=== PATIENT | female | born 1930 | race Caucasian/White ===

== ENCOUNTER → 2016-12-11 | Emergency (ER) | payer MEDICARE, MEDICAID ==
[~2016-12-11] MED LIST: CIPROFLOXACIN HCL/DEXAMETH OTIC DROP 7.5 ML AU ONE
[2016-12-11 16:12] VITALS: BP 100/49
--- NOTE | 2016-12-11 16:55 | ER Document Report ---
ED ENT - General Mode of Arrival: Ambulatory Information source: Patient TRAVEL OUTSIDE OF THE [place]. IN LAST 30 DAYS: No - HPI Patient complains to provider of: Ear problem Onset: Other - unknown Quality of pain: Achy Associated symptoms: None <PATT BYRNES - Last Filed: 12/11/16 18:49> <LORENZO KELLER - Last Filed: 12/11/16 21:47> - General Stated Complaint: WEAKNESS Notes: Patient is an 86-year-old female that presents to the emergency department today from [facility] for complaints of ear pain. Patient is pleasantly demented at baseline. Patient states she believes it is 1940. Patient is able to accurately state that we re in December. Patient denies any fevers. (PATT BYRNES) - Related Data Allergies/Adverse Reactions: clonazepam [From Klonopin] Allergy (Verified 05/27/16 00:52) codeine [Codeine] Allergy (Verified 05/27/16 00:52) erythromycin base [Erythromycin Base] Allergy (Verified 05/27/16 00:52) hydrocodone [Hydrocodone] Allergy (Verified 05/27/16 00:52) Delirium hydrocodone bitartrate [From Vicodin] Allergy (Verified 05/27/16 00:52) Delirium Sulfa (Sulfonamide Antibiotics) Allergy (Verified 05/27/16 00:52) Skin Redness morphine [Morphine] Adverse Reaction (Intermediate, Verified 05/27/16 00:52) confusion, agitation oxycodone HCl [From Percocet] Adverse Reaction (Verified 05/27/16 00:52) Confusion strawberry [[place]] Adverse Reaction (Verified 05/27/16 00:52) Tetanus Vaccines and Toxoid [Tetanus] Adverse Reaction (Verified 05/27/16 00:52) Past Medical History - General Information source: Patient, [facility] Records Cannot obtain history due to: Dementia - Social History Smoking Status: Never Smoker Cigarette use (# per day): No Frequency of alcohol use: None Drug Abuse: None Lives with: Family Family History: Reviewed & Not Pertinent - Past Medical History Cardiac Medical History: Reports: Hx Hypercholesterolemia, Hx Hypertension Pulmonary Medical History: Reports: Hx Tuberculosis Endocrine Medical History: Reports: Hx Hypothyroidism Renal/ Medical History: Reports: Hx Ectopic Musculoskeltal Medical History: Reports Hx Arthritis, Reports Hx Musculoskeletal Trauma Skin Medical History: Reports Hx Eczema Psychiatric Medical History: Reports: Hx Dementia Traumatic Medical History: Reports: Hx Fractures - right hip Past Surgical History: Reports: Hx Orthopedic Surgery - right hip ORIF - Immunizations Immunizations up to date: Yes Hx Diphtheria, Pertussis, Tetanus Vaccination: Yes <PATT BYRNES - Last Filed: 12/11/16 18:49> Review of Systems - Review of Systems Constitutional: denies: Fever EENT: See HPI, Ear pain Cardiovascular: No symptoms reported Respiratory: No symptoms reported Gastrointestinal: No symptoms reported Genitourinary: No symptoms reported Female Genitourinary: No symptoms reported Musculoskeletal: No symptoms reported Skin: No symptoms reported Hematologic/Lymphatic: No symptoms reported Neurological/Psychological: No symptoms reported -: Yes All other systems reviewed and negative <PATT BYRNES - Last Filed: 12/11/16 18:49> Physical Exam <PATT BYRNES - Last Filed: 12/11/16 18:49> <LORENZO KELLER - Last Filed: 12/11/16 21:47> - Vital signs Vitals: Temp Pulse Resp BP Pulse Ox 98.8 F 60 16 100/49 L 99 12/11/16 16:11 12/11/16 16:11 12/11/16 16:11 12/11/16 16:11 12/11/16 16:11 - Notes Notes: Physical Exam: General: Alert, appears well. HEENT: Normocephalic. Atraumatic. PERRL. Extraocular movements intact. Oropharynx clear. Cerumen impaction bilaterally. External canal erythema on the right. Neck: Supple. Non-tender. Respiratory: No respiratory distress. Clear and equal breath sounds bilaterally. Cardiovascular: Regular rate and rhythm. Abdominal: Normal Inspection. Non-tender. No distension. Normal Bowel Sounds. Back: Non-tender. No deformity or step off. Extremities: Moves all four extremities. Upper extremities: Normal inspection. Normal color. Normal ROM. Lower extremities: Normal inspection. No edema. Normal ROM. Neurological: Alert to month, does not remember the year, believes it is 1940. Psychological: Demented at baseline Skin: Warm. Dry. Normal color. (PATT BYRNES) Course <PATT BYRNES - Last Filed: 12/11/16 18:49> <LORENZO KELLER - Last Filed: 12/11/16 21:47> - Re-evaluation Re-evalutation: 12/11/16 17:52 Patient is an 86-year-old female who comes in with bilateral cerumen impaction. The ears were irrigated with good results. Patient also appears to have otitis externa on the right. Ciprodex started. Patient is stable for discharge. No complaints. Stable vitals. (LORENZO KELLER) - Vital Signs Vital signs: Temp Pulse Resp BP Pulse Ox 98.8 F 60 16 100/49 L 99 12/11/16 16:11 12/11/16 16:11 12/11/16 16:11 12/11/16 16:11 12/11/16 16:11 Procedures - Additional Procedures cerumen removal Additional Procedures: Other - Irrigated bilateral ears with saline and peroxide with good results. Can now visualize tympanic membrane bilaterally <LORENZO KELLER - Last Filed: 12/11/16 21:47> Discharge <PATT BYRNES - Last Filed: 12/11/16 18:49> <LORENZO KELLER - Last Filed: 12/11/16 21:47> - Discharge Clinical Impression: Impacted cerumen of both ears Otitis externa of right ear Qualifiers: Otitis externa type: unspecified type Chronicity: acute Qualified Code(s): H60.501 - Unspecified acute noninfective otitis externa, right ear Condition: Stable Disposition: HOME, SELF-CARE Instructions: Otitis Externa ([facility]), Cerumen Impaction ([facility]) Prescriptions: Ciprofloxacin HCl/Dexameth [Ciprodex Otic Suspension 7.5 ml Bottle] 4 drop OT BID #1 bottle Referrals: OLEG KAUFFMAN MD [Primary Care Provider] - Follow up as needed Scribe Attestation: 12/11/16 21:47 I personally performed the services described in the documentation, reviewed and edited the documentation which was dictated to the scribe in my presence, and it accurately records my words and actions. (LORENZO KELLER) Scribe Documentation - Scribe Written by Mannyibe:: Madeleine Whalen, 12/11/2016 1720 acting as scribe for :: Keith <PATT BYRNES - Last Filed: 12/11/16 18:49>
== END | disposition home or self-care (01) ==
LOC: ER 15:57
DX: H61.23 Impacted cerumen, bilateral (principal); H60.501 Unspecified acute noninfective otitis externa, right ear; R53.1 Weakness; H92.09 Otalgia, unspecified ear
CPT/HCPCS: 99283; 71020; J3490

== ENCOUNTER 2017-01-01 04:19 | Emergency (ER) | payer MEDICARE, MEDICAID ==
--- NOTE | 2017-01-01 05:18 | ER Document Report ---
ED Fall - General Chief Complaint: Fall Stated Complaint: FALL/WELL CHECK Mode of Arrival: Medic Information source: Outside Facility Records Notes: Pt is an 86-year-old female with dementia who resides at a long term who presents to the ER today for chief complaint of a fall to her left side. Patient did complain of some left knee pain, headache and left hip pain. Patient at this time does not even remember the fall and is complaining of just a mild headache and no pain anywhere else. She is not oriented to time. TRAVEL OUTSIDE OF THE [place]. IN LAST 30 DAYS: No - Related data Allergies/Adverse Reactions: clonazepam [From Klonopin] Allergy (Verified 05/27/16 00:52) codeine [Codeine] Allergy (Verified 05/27/16 00:52) erythromycin base [Erythromycin Base] Allergy (Verified 05/27/16 00:52) hydrocodone [Hydrocodone] Allergy (Verified 05/27/16 00:52) Delirium hydrocodone bitartrate [From Vicodin] Allergy (Verified 05/27/16 00:52) Delirium Sulfa (Sulfonamide Antibiotics) Allergy (Verified 05/27/16 00:52) Skin Redness morphine [Morphine] Adverse Reaction (Intermediate, Verified 05/27/16 00:52) confusion, agitation oxycodone HCl [From Percocet] Adverse Reaction (Verified 05/27/16 00:52) Confusion strawberry [[place]] Adverse Reaction (Verified 05/27/16 00:52) Tetanus Vaccines and Toxoid [Tetanus] Adverse Reaction (Verified 05/27/16 00:52) Past Medical History - General Information source: Patient, Outside Facility Records - Social History Smoking Status: Unknown if Ever Smoked Family History: Reviewed & Not Pertinent - Past Medical History Cardiac Medical History: Reports: Hx Hypercholesterolemia, Hx Hypertension Pulmonary Medical History: Reports: Hx Tuberculosis Endocrine Medical History: Reports: Hx Hypothyroidism Renal/ Medical History: Reports: Hx Ectopic Musculoskeltal Medical History: Reports Hx Arthritis, Reports Hx Musculoskeletal Trauma Skin Medical History: Reports Hx Eczema Psychiatric Medical History: Reports: Hx Dementia Traumatic Medical History: Reports: Hx Fractures - right hip Past Surgical History: Reports: Hx Orthopedic Surgery - right hip ORIF - Immunizations Immunizations up to date: Yes Hx Diphtheria, Pertussis, Tetanus Vaccination: Yes Review of Systems - Review of Systems Constitutional: No symptoms reported EENT: No symptoms reported Cardiovascular: No symptoms reported Respiratory: No symptoms reported Gastrointestinal: No symptoms reported Genitourinary: No symptoms reported Female Genitourinary: No symptoms reported Musculoskeletal: No symptoms reported Skin: No symptoms reported Hematologic/Lymphatic: No symptoms reported Neurological/Psychological: See HPI Physical Exam - Vital signs Vitals: Temp Pulse Resp BP Pulse Ox 97.6 F 61 14 135/68 H 99 01/01/17 04:30 01/01/17 04:30 01/01/17 04:30 01/01/17 04:30 01/01/17 04:30 - Notes Notes: PHYSICAL EXAMINATION: GENERAL: Well-appearing, demented and in no acute distress. HEAD: Atraumatic, normocephalic. NECK: Normal range of motion, supple without lymphadenopathy LUNGS: CTAB and equal. No wheezes rales or rhonchi. HEART: Regular rate and rhythm without murmurs ABDOMEN: Soft, no tenderness. No guarding, no rebound BACK: no vertebral tenderness, normal ROM EXTREMITIES: no tenderness to knees or hips, no deformity, Normal range of motion, no pitting edema. No cyanosis. NEUROLOGICAL: Cranial nerves grossly intact. Normal sensory/motor exams. PSYCH: demented, oriented to person but not place or time SKIN: Warm, Dry, normal turgor, no rashes or lesions noted Course - Re-evaluation Re-evalutation: 01/01/17 06:46 left hip, left knee and head CT negative for any acute pathology. Pt has no complaints and can be safely discharged back to long term. - Vital Signs Vital signs: Temp Pulse Resp BP Pulse Ox 97.6 F 58 L 18 123/60 96 01/01/17 04:30 01/01/17 05:17 01/01/17 06:24 01/01/17 06:24 01/01/17 06:24 Discharge - Discharge Clinical Impression: Fall at long term Qualifiers: Encounter type: initial encounter Qualified Code(s): W19.XXXA - Unspecified fall, initial encounter Condition: Stable Disposition: HOME-SNF (ED ONLY)
[2017-01-01 09:06] VITALS: BP 108/64
== END 2017-01-01 09:07 ==
LOC: ER 04:19
DX: R51 Headache (principal); M25.562 Pain in left knee; M25.552 Pain in left hip; W19.XXXA Unspecified fall, initial encounter; F03.90 Unspecified dementia, unspecified severity, without behavioral disturbance, psychotic disturbance, mood disturbance, and anxiety; Y92.129 Unspecified place in nursing home as the place of occurrence of the external cause; I10 Essential (primary) hypertension; Z88.8 Allergy status to other drugs, medicaments and biological substances; Z88.5 Allergy status to narcotic agent; Z88.1 Allergy status to other antibiotic agents; Z88.2 Allergy status to sulfonamides
CPT/HCPCS: 70450; 99285

== ENCOUNTER 2017-12-16 14:30 | Emergency (ER) | payer MEDICARE, MEDICAID ==
--- NOTE | 2017-12-16 14:58 | RADIOLOGY REPORT (SQ) ---
EXAM DESCRIPTION: HIP RIGHT AP/LATERAL COMPLETED DATE/TIME: 12/16/2017 2:44 pm REASON FOR STUDY: bed 1 right hip s/p fall with tenderness COMPARISON: 01/01/2017. NUMBER OF VIEWS: Two views. TECHNIQUE: AP pelvis and additional frog-leg view of the right hip. LIMITATIONS: None. FINDINGS: MINERALIZATION: Normal. RIGHT HIP: No fracture or dislocation. Stable hardware. No worrisome bone lesions. LEFT HIP: No fracture or dislocation. No worrisome bone lesions. PUBIS AND ISCHIUM: Acute fractures of the right superior and inferior pubic ramus. PELVIS: No fracture. SACRUM: No fracture or dislocation. No worrisome bone lesions. LOWER LUMBAR SPINE: No fracture or dislocation. No worrisome bone lesions. Degenerative disc disease . SOFT TISSUES: No findings. OTHER: No other significant finding. IMPRESSION: ACUTE FRACTURES OF THE RIGHT SUPERIOR AND INFERIOR PUBIC RAMUS. STABLE HARDWARE IN THE RIGHT HIP. TECHNICAL DOCUMENTATION: JOB ID: [id number] [employer]- All Rights Reserved Reading location - IP/workstation name: [email or web address]
[2017-12-16] MEDS ORDERED: ACETAMINOPHEN 325 MG TABLET PO ONE (15:13)
--- NOTE | 2017-12-16 15:45 | ER Document Report ---
ED Hip Pain/Injury - General Chief Complaint: Hip Injury Stated Complaint: FALL Time Seen by Provider: 12/16/17 15:02 Mode of Arrival: Stretcher Information source: Emergency Med Personnel, Outside Facility Records TRAVEL OUTSIDE OF THE [place]. IN LAST 30 DAYS: No - HPI Patient complains to provider of: Injury, Pain Occurred: Just prior to arrival Where: Long-Term Onset/Duration: Sudden Quality of pain: Achy Severity: Mild Pain Level: 1 Context: Fell/lost balance Symptoms prior to fall: None Symptoms since fall: None Skin Color: Normal Notes: Patient is a 89-year-old female [facility] local [facility] for complaints of [facility] from commode, patient has a history of a hip fracture with repair in 2013, she has no complaints at time of my evaluation, in fact denies that she fell, although she has a dementia and is unlikely not oriented to events of the day, she does have some tenderness when I palpate over the right hip/suprapubic area , and some pain with range of motion testing of the right hip - Related Data Allergies/Adverse Reactions: clonazepam [From Klonopin] Allergy (Verified 05/27/16 00:52) codeine [Codeine] Allergy (Verified 05/27/16 00:52) erythromycin base [Erythromycin Base] Allergy (Verified 05/27/16 00:52) hydrocodone [Hydrocodone] Allergy (Verified 05/27/16 00:52) Delirium hydrocodone bitartrate [From Vicodin] Allergy (Verified 05/27/16 00:52) Delirium Sulfa (Sulfonamide Antibiotics) Allergy (Verified 05/27/16 00:52) Skin Redness morphine [Morphine] Adverse Reaction (Intermediate, Verified 05/27/16 00:52) confusion, agitation oxycodone HCl [From Percocet] Adverse Reaction (Verified 05/27/16 00:52) Confusion strawberry [[place]] Adverse Reaction (Verified 05/27/16 00:52) Tetanus Vaccines and Toxoid [Tetanus] Adverse Reaction (Verified 05/27/16 00:52) Past Medical History - General Information source: Patient - Social History Smoking Status: Unknown if Ever Smoked Family History: Reviewed & Not Pertinent Patient has suicidal ideation: No Patient has homicidal ideation: No - Past Medical History Cardiac Medical History: Reports: Hx Hypercholesterolemia, Hx Hypertension Pulmonary Medical History: Reports: Hx Tuberculosis Endocrine Medical History: Reports: Hx Hypothyroidism Renal/ Medical History: Reports: Hx Ectopic . Denies: Hx Peritoneal Dialysis Musculoskeltal Medical History: Reports Hx Arthritis, Reports Hx Musculoskeletal Trauma Skin Medical History: Reports Hx Eczema Psychiatric Medical History: Reports: Hx Dementia Traumatic Medical History: Reports: Hx Fractures - right hip Past Surgical History: Reports: Hx Orthopedic Surgery - right hip ORIF - Immunizations Immunizations up to date: Yes Hx Diphtheria, Pertussis, Tetanus Vaccination: Yes Review of Systems - Review of Systems Constitutional: No symptoms reported EENT: No symptoms reported Cardiovascular: No symptoms reported Respiratory: No symptoms reported Gastrointestinal: No symptoms reported Genitourinary: No symptoms reported Female Genitourinary: No symptoms reported Musculoskeletal: See HPI Skin: No symptoms reported Hematologic/Lymphatic: No symptoms reported Neurological/Psychological: No symptoms reported -: Yes All other systems reviewed and negative Physical Exam - Vital signs Interpretation: Normal - General General appearance: Alert In distress: None - HEENT Head: Normocephalic, Atraumatic Eyes: Normal Conjunctiva: Normal Extraocular movements intact: Yes Eyelashes: Normal Pupils: PERRL - Respiratory Respiratory status: No respiratory distress Chest status: Nontender Breath sounds: Normal Chest palpation: Normal - Cardiovascular Rhythm: Regular Heart sounds: Normal auscultation Murmur: No - Abdominal Inspection: Normal Distension: No distension Bowel sounds: Normal Tenderness: Nontender Organomegaly: No organomegaly - Back Back: Normal, Nontender - Extremities General upper extremity: Normal inspection, Nontender, Normal color, Normal ROM , Normal temperature General lower extremity: Normal color, Normal ROM, Normal temperature. No: Carmen's sign Hip: Tender - Tenderness to palpate in the right hip/suprapubic region, patient reports pain with range of motion testing, distal sensation and motor is intact with 2+ pulses, no deformity - Neurological Neuro grossly intact: Yes Cognition: Confused Orientation: Disoriented to place, Disoriented to time, Disoriented to events [place] Coma Scale Eye Opening: Spontaneous Willis Coma Scale Verbal: Confused Remington Coma Scale Motor: Obeys Commands Willis Coma Scale Total: 14 Speech: Normal Motor strength normal: LUE, RUE, LLE Sensory: Normal - Psychological Associated symptoms: Normal affect, Normal mood - Skin Skin Temperature: Warm Skin Moisture: Dry Skin Color: Normal Skin irregularity: Erythema - Diffuse erythema Location of irregularity: Face Course - Re-evaluation Re-evalutation: 12/16/17 15:54 Patient discussed with on-call orthopedist, Dr. Shaw who reviewed patient's x -rays and reports no intervention required at this time, patient can safely be [facility] to [facility] with instructions to weight-bear as tolerated - Diagnostic Test Radiology reviewed: Image reviewed, Reports reviewed Discharge - Discharge Clinical Impression: Pubic ramus fracture Qualifiers: Encounter type: initial encounter Fracture type: closed Laterality: right Qualified Code(s): S32.591A - Other specified fracture of right pubis, initial encounter for closed fracture Condition: Stable Disposition: HOME, SELF-CARE Instructions: Pelvic Fracture ([facility]) Additional Instructions: Follow up with your primary care provider and an orthopedic surgeon in one to 2 days. Return to the emergency room immediately if symptoms worsen or any additional concerns. Ice and elevate the affected extremity. Weightbearing as tolerated. Prescriptions: Ibuprofen [Motrin 600 Mg Tablet] 600 mg PO TID #30 tablet
[2017-12-16 17:41] VITALS: BP 118/30
== END 2017-12-16 17:40 | disposition home or self-care (01) ==
LOC: ER 14:30
DX: S32.591A Other specified fracture of right pubis, initial encounter for closed fracture (principal); W18.11XA Fall from or off toilet without subsequent striking against object, initial encounter; Y92.129 Unspecified place in nursing home as the place of occurrence of the external cause; F03.90 Unspecified dementia, unspecified severity, without behavioral disturbance, psychotic disturbance, mood disturbance, and anxiety; I10 Essential (primary) hypertension; E78.00 Pure hypercholesterolemia, unspecified; Z88.2 Allergy status to sulfonamides; Z88.7 Allergy status to serum and vaccine; Z88.3 Allergy status to other anti-infective agents; Z88.6 Allergy status to analgesic agent
CPT/HCPCS: 99283; 73502; A9270

== ENCOUNTER 2018-01-25 13:26 | Emergency (ER) | payer MEDICARE, MEDICAID ==
--- NOTE | 2018-01-25 14:04 | RADIOLOGY REPORT (SQ) ---
EXAM DESCRIPTION: HIP LEFT AP/LATERAL COMPLETED DATE/TIME: 01/25/2018 1:47 pm REASON FOR STUDY: fall COMPARISON: None. NUMBER OF VIEWS: 3 views. TECHNIQUE: AP pelvis and additional frog-leg view of the left hip. LIMITATIONS: None. FINDINGS: There is evidence of lumbar spondylosis. The SI joints is symmetrical. Since the previou s study there has been no significant healing at site of fractures of the right superior and inferior pubic ramus with further resorption along the fracture lines. Degenerative arthritis of the left hi p with osteophytic change left femoral head. Previous internal fixation right hip with right hip martin l traversing intramedullary eliecer. The eliecer is transfixed by a single screw. 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 IMPRESSION: Since the prior study of 12/16/2017, there has been further resorption at the site of fra ctures of the right superior and inferior pubic ramus. Status post internal fixation proximal right femur. Degenerative arthritis left hip. TECHNICAL DOCUMENTATION: JOB ID: [id number] [employer]- All Rights Reserved Reading location - IP/workstation name: [email or web address]
--- NOTE | 2018-01-25 14:11 | ER Document Report ---
ED General - General Chief Complaint: Fall Stated Complaint: HIP PAIN TRAVEL OUTSIDE OF THE [place] IN LAST 30 DAYS: No - HPI Patient complains to provider of: Possible fall Notes: Patient is a local nursing care facility when she was found lying next to her chair at the nursing care facility. Patient has a history of a pelvic fracture and does have pain on that side however patient was transferred for further evaluation. Upon my evaluation patient smiling denies any pain at this time patient does have a history of dementia of the median alert is not oriented no signs of significant trauma seen on the head - Related Data Allergies/Adverse Reactions: clonazepam [From Klonopin] Allergy (Verified 05/27/16 00:52) codeine [Codeine] Allergy (Verified 05/27/16 00:52) erythromycin base [Erythromycin Base] Allergy (Verified 05/27/16 00:52) hydrocodone [Hydrocodone] Allergy (Verified 05/27/16 00:52) Delirium hydrocodone bitartrate [From Vicodin] Allergy (Verified 05/27/16 00:52) Delirium Sulfa (Sulfonamide Antibiotics) Allergy (Verified 05/27/16 00:52) Skin Redness morphine [Morphine] Adverse Reaction (Intermediate, Verified 05/27/16 00:52) confusion, agitation oxycodone HCl [From Percocet] Adverse Reaction (Verified 05/27/16 00:52) Confusion strawberry [[place]] Adverse Reaction (Verified 05/27/16 00:52) Tetanus Vaccines and Toxoid [Tetanus] Adverse Reaction (Verified 05/27/16 00:52) Past Medical History - Social History Smoking Status: Unknown if Ever Smoked Family History: Reviewed & Not Pertinent Patient has suicidal ideation: No Patient has homicidal ideation: No - Past Medical History Cardiac Medical History: Reports: Hx Hypercholesterolemia, Hx Hypertension Pulmonary Medical History: Reports: Hx Tuberculosis Endocrine Medical History: Reports: Hx Hypothyroidism Renal/ Medical History: Reports: Hx Ectopic . Denies: Hx Peritoneal Dialysis Musculoskeltal Medical History: Reports Hx Arthritis, Reports Hx Musculoskeletal Trauma Skin Medical History: Reports Hx Eczema Psychiatric Medical History: Reports: Hx Dementia Traumatic Medical History: Reports: Hx Fractures - right hip Past Surgical History: Reports: Hx Orthopedic Surgery - right hip ORIF - Immunizations Immunizations up to date: Yes Hx Diphtheria, Pertussis, Tetanus Vaccination: Yes Review of Systems - Review of Systems Notes: Dementia -: Yes ROS unobtainable due to patient's medical condition Physical Exam - Vital signs Vitals: Temp Pulse Resp BP Pulse Ox 97.8 F 60 13 125/57 L 96 01/25/18 14:13 01/25/18 14:13 01/25/18 14:13 01/25/18 14:13 01/25/18 14:13 Interpretation: Normal - General General appearance: Appears well, Alert - HEENT Head: Normocephalic, Atraumatic Eyes: Normal Pupils: PERRL - Respiratory Respiratory status: No respiratory distress Chest status: Nontender Breath sounds: Normal Chest palpation: Normal - Cardiovascular Rhythm: Regular Heart sounds: Normal auscultation Murmur: No - Abdominal Inspection: Normal Distension: No distension Bowel sounds: Normal Tenderness: Nontender Organomegaly: No organomegaly - Back Back: Normal, Nontender - Extremities General upper extremity: Normal inspection, Nontender, Normal color, Normal ROM , Normal temperature General lower extremity: Normal inspection, Nontender, Normal color, Normal ROM , Normal temperature, Normal weight bearing. No: Carmen's sign - Neurological Neuro grossly intact: Yes Sensory: Normal - Skin Skin Temperature: Warm Skin Moisture: Dry Skin Color: Normal Course - Re-evaluation Re-evalutation: 01/25/18 15:26 Patient still has the right pubic rami fracture this was reviewed with orthopedics agrees with continued weightbearing as tolerated and follow-up in their office in 1-2 weeks. No signs of acute fracture patient discharged back to nursing care facility. - Vital Signs Vital signs: Temp Pulse Resp BP Pulse Ox 97.8 F 60 13 125/57 L 96 01/25/18 14:55 01/25/18 14:13 01/25/18 14:55 01/25/18 14:13 01/25/18 14:55 Discharge - Discharge Clinical Impression: Pubic ramus fracture Qualifiers: Encounter type: subsequent encounter Fracture type: closed Laterality: right Condition: Good Disposition: HOME, SELF-CARE Additional Instructions: Patient was seen and evaluated today for follow-up. Patient x-ray does not show any signs of fractures of the hip does show to her redemonstrate fractures of the pubic ramus. Would recommend the patient continues to follow-up with orthopedics in 1-2 weeks. Patient should remain weightbearing as tolerated otherwise please monitor the patient please create a safe environment to prevent falls.
[2018-01-25 14:14] VITALS: BP 125/57
== END 2018-01-25 14:59 | disposition home or self-care (01) ==
LOC: ER 13:26
DX: S32.591D Other specified fracture of right pubis, subsequent encounter for fracture with routine healing (principal); X58.XXXD Exposure to other specified factors, subsequent encounter; M25.551 Pain in right hip; Z98.890 Other specified postprocedural states; I10 Essential (primary) hypertension; Z88.8 Allergy status to other drugs, medicaments and biological substances; Z88.5 Allergy status to narcotic agent; Z88.1 Allergy status to other antibiotic agents; Z88.2 Allergy status to sulfonamides
CPT/HCPCS: 99284

== ENCOUNTER 2018-02-14 17:01 | Inpatient (IN) | payer MEDICARE, MEDICAID ==
[2018-02-14] MEDS ORDERED: NORMAL SALINE 500 ML IV ONE (17:35)
[2018-02-14 18:00] LABS: HEMATOCRIT 37.7 % (36.0-47.0); HEMOGLOBIN 12.8 g/dL (12.0-15.5); MEAN CORPUSCULAR HEMOGLOBIN 29.8 pg (27.0-33.4); MEAN CORPUSCULAR HGB CONC 33.9 g/dL (32.0-36.0); MEAN CORPUSCULAR VOLUME 88 fl (80-97); PLATELET COUNT 256 10^3/uL (150-450); RED BLOOD COUNT 4.28 10^6/uL (3.72-5.28); WHITE BLOOD COUNT 12.5 10^3/uL (4.0-10.5)
--- NOTE | 2018-02-14 18:05 | RADIOLOGY REPORT (SQ) ---
EXAM DESCRIPTION: CHEST SINGLE VIEW COMPLETED DATE/TIME: 02/14/2018 5:48 pm REASON FOR STUDY: cough COMPARISON: 12/11/2016 EXAM PARAMETERS: NUMBER OF VIEWS: One view. TECHNIQUE: Single frontal radiographic view of the chest acquired. RADIATION DOSE: NA LIMITATIONS: None. FINDINGS: LUNGS AND PLEURA: Mild subsegmental atelectasis in the left lung base. No consolidation, masses or pneumothorax. No pleural effusion. MEDIASTINUM AND HILAR STRUCTURES: Stable. HEART AND VASCULAR STRUCTURES: Stable. BONES: No acute findings. HARDWARE: Surgical clips in the left axilla-chest wall. OTHER: No other significant finding. IMPRESSION: Mild subsegmental atelectasis in the left lung base. TECHNICAL DOCUMENTATION: JOB ID: [id number] 2010 [employer]- All Rights Reserved Reading location - IP/workstation name: [employer]
[2018-02-14 18:09] LABS: ALANINE AMINOTRANSFERASE 23 U/L (9-52); ALBUMIN 3.8 g/dL (3.5-5.0); ALKALINE PHOSPHATASE 403 U/L (38-126); ANION GAP 17 (5-19); ASPARTATE AMINO TRANSFERASE 40 U/L (14-36); BILIRUBIN,DIRECT 0.8 mg/dL (0.0-0.4); BILIRUBIN,TOTAL 0.8 mg/dL (0.2-1.3); BLOOD UREA NITROGEN 90 mg/dL (7-20); CALCIUM 10.1 mg/dL (8.4-10.2); CARBON DIOXIDE 23 mmol/L (22-30); CHLORIDE 111 mmol/L (98-107); CREATINE KINASE 48 U/L (30-135); GLUCOSE 113 mg/dL (75-110); POTASSIUM 3.9 mmol/L (3.6-5.0); SODIUM 151.2 mmol/L (137-145); TOTAL PROTEIN 8.9 g/dL (6.3-8.2)
[2018-02-14 18:25] LABS: ABSOLUTE LYMPHOCYTES# (MANUAL) 3.5 10^3/uL (0.5-4.7); ABSOLUTE MONOCYTES # (MANUAL) 0.8 10^3/uL (0.1-1.4); BAND NEUTROPHILS % (MANUAL) 3 % (3-5); BASOPHILS % (MANUAL) 0 % (0-2); EOSINOPHILS % (MANUAL) 2 % (0-6); LYMPHOCYTES % (MANUAL) 28 % (13-45); METAMYELOCYTES % (MANUAL) 2 % (0); MONOCYTES % (MANUAL) 6 % (3-13); SEGMENTED NEUTROPHILS % (MAN) 59 % (42-78); TOTAL CELLS COUNTED 100
[2018-02-14 18:26] LABS: ANISOCYTOSIS 1+; PLATELET COMMENT ADEQUATE; TOXIC GRANULATION SLIGHT
[2018-02-14] MEDS ORDERED: DEXTROSE 5%-1/2 NORMAL SALINE 1,000 ML IV ONE (19:09)
[2018-02-14] MEDS ORDERED: RINGERS SOLUTION,LACTATED 1,000 ML IV ONE (19:10)
[2018-02-14 19:56] LABS: APPEARANCE,URINE CLOUDY; BILIRUBIN,URINE NEGATIVE (NEGATIVE); GLUCOSE, URINE NEGATIVE (NEGATIVE); KETONES,URINE NEGATIVE (NEGATIVE); LEUKOCYTE ESTERASE,URINE LARGE (NEGATIVE); NITRITE,URINE NEGATIVE (NEGATIVE); PROTEIN,URINE 100 mg/dL (NEGATIVE); URINE SPECIFIC GRAVITY 1.012
[2018-02-14 19:57] LABS: COLOR,URINE YELLOW
[2018-02-14] MEDS ORDERED: CEFTRIAXONE 1 GM/D5W RTU 1 GM/50 ML RTUPB IV ONE (20:04)
--- NOTE | 2018-02-14 20:09 | ER Document Report ---
ED General - General Chief Complaint: Altered Mental Status Stated Complaint: Lethargic Time Seen by Provider: 02/14/18 17:34 Notes: The patient is an 87-year-old female, past medical history dementia, seizures, hypertension, presents from [facility] with altered mental status and tiredness. When EMS arrived, steam pan sponger was unsure of her baseline mental status. Patient is awake, alert, but unable to provide any additional history. Patient denies any symptoms at this time. TRAVEL OUTSIDE OF THE [place] IN LAST 30 DAYS: No - Related Data Allergies/Adverse Reactions: clonazepam [From Klonopin] Allergy (Verified 05/27/16 00:52) codeine [Codeine] Allergy (Verified 05/27/16 00:52) erythromycin base [Erythromycin Base] Allergy (Verified 05/27/16 00:52) hydrocodone [Hydrocodone] Allergy (Verified 05/27/16 00:52) Delirium hydrocodone bitartrate [From Vicodin] Allergy (Verified 05/27/16 00:52) Delirium Sulfa (Sulfonamide Antibiotics) Allergy (Verified 05/27/16 00:52) Skin Redness morphine [Morphine] Adverse Reaction (Intermediate, Verified 05/27/16 00:52) confusion, agitation oxycodone HCl [From Percocet] Adverse Reaction (Verified 05/27/16 00:52) Confusion strawberry [[place]] Adverse Reaction (Verified 05/27/16 00:52) Tetanus Vaccines and Toxoid [Tetanus] Adverse Reaction (Verified 05/27/16 00:52) Past Medical History - Social History Smoking Status: Unknown if Ever Smoked Family History: Reviewed & Not Pertinent Patient has suicidal ideation: No Patient has homicidal ideation: No - Past Medical History Cardiac Medical History: Reports: Hx Hypercholesterolemia, Hx Hypertension Pulmonary Medical History: Reports: Hx Tuberculosis Endocrine Medical History: Reports: Hx Hypothyroidism Renal/ Medical History: Reports: Hx Ectopic . Denies: Hx Peritoneal Dialysis Musculoskeltal Medical History: Reports Hx Arthritis, Reports Hx Musculoskeletal Trauma Skin Medical History: Reports Hx Eczema Psychiatric Medical History: Reports: Hx Dementia Traumatic Medical History: Reports: Hx Fractures - right hip Past Surgical History: Reports: Hx Orthopedic Surgery - right hip ORIF - Immunizations Immunizations up to date: Yes Hx Diphtheria, Pertussis, Tetanus Vaccination: Yes Physical Exam - Vital signs Vitals: Temp Pulse Resp BP 97.6 F 58 L 16 111/59 L 02/14/18 17:17 02/14/18 17:17 02/14/18 17:17 02/14/18 17:17 - Notes Notes: PHYSICAL EXAMINATION: GENERAL: Frail-appearing, no acute distress. HEAD: Atraumatic, normocephalic. EYES: Left eye conjunctivitis. Pupils equal round and reactive to light, extraocular movements intact, sclera anicteric. ENT: nares patent, oropharynx clear without exudates. Moist mucous membranes. NECK: Normal range of motion, supple without lymphadenopathy LUNGS: Breath sounds clear to auscultation bilaterally and equal. No wheezes rales or rhonchi. HEART: Regular rate and rhythm without murmurs ABDOMEN: Soft, nontender, normoactive bowel sounds. No guarding, no rebound. No masses appreciated. EXTREMITIES: Normal range of motion, no pitting or edema. No cyanosis. NEUROLOGICAL: Moving all 4 extremities. Sensation intact. PSYCH: Normal mood, normal affect. SKIN: Warm, Dry, normal turgor, no rashes or lesions noted. Course - Re-evaluation Re-evalutation: Patient is in no acute distress. When EMS arrived, they are unsure of her initial oxygen sats, but when she arrived to the ER, her oxygen was 97% on room air. She does have evidence of a UTI with a leukocytosis and CUONG. Her creatinine tripled from 0.87 to 2.99 and her BUN is 87. Sodium is 151. Provide her with lactated Ringer's and she requires admission for further evaluation and treatment. 02/14/18 21:[address] Bryant and will admit patient as inpatient to [facility] for further evaluation and treatment. - Vital Signs Vital signs: Temp Pulse Resp BP Pulse Ox 97.6 F 60 13 105/51 L 95 02/14/18 17:17 02/14/18 18:48 02/14/18 19:40 02/14/18 19:40 02/14/18 19:40 - Laboratory Result Diagrams: 02/14/18 17:42 02/14/18 17:42 Laboratory results interpreted by me: 02/14/18 02/14/18 02/14/18 17:42 17:42 19:24 WBC 12.5 H RDW 16.0 H Metamyelocytes % 2 H Sodium 151.2 H Chloride 111 H BUN 90 H Creatinine 2.99 H Est GFR ( Amer) 18 L Est GFR (Non-Af Amer) 15 L Glucose 113 H Direct Bilirubin 0.8 H AST 40 H Alkaline Phosphatase 403 H Total Protein 8.9 H Urine Protein 100 H Urine Blood MODERATE H Urine Urobilinogen 2.0 H Ur Leukocyte Esterase LARGE H Discharge - Discharge Clinical Impression: CUONG (acute kidney injury), Hyponatremia UTI (urinary tract infection) Qualifiers: Urinary tract infection type: site unspecified Hematuria presence: with hematuria Qualified Code(s): N39.0 - Urinary tract infection, site not specified Altered mental status Qualifiers: Altered mental status type: unspecified Qualified Code(s): R41.82 - Altered mental status, unspecified Condition: Stable Disposition: ADMITTED INPATIENT Admitting Provider: Hospitalist [facility] Unit Admitted: Telemetry Referrals: OLEG KAUFFMAN MD [Primary Care Provider] - Follow up as needed
[2018-02-14] MEDS ORDERED: ACETAMINOPHEN 325 MG TABLET PO PRN (22:01)
[2018-02-14] MEDS ORDERED: ONDANSETRON HCL INJ/PF 4 MG/2 ML SDV IV PRN (22:01)
[2018-02-14] MEDS ORDERED: ALPRAZOLAM 0.25 MG TABLET PO PRN (22:07)
[2018-02-14] MEDS ORDERED: NORMAL SALINE 1000 ML 1,000 ML IV PRN (22:15)
--- NOTE | 2018-02-14 23:18 | PDOC H&P ---
History of Present Illness Admission Date/PCP: 02/14/18 21:15 OLEG KAUFFMAN History of Present Illness: CYN WARNER is a 87 year old female patient with past medical history of seizure disorder, hypertension, hypothyroidism, diastolic heart failure and dementia brought from [facility] for altered mental status and tiredness. Due to her underlying cognitive impairment patient is not source of history. Brief history obtained from ER attending note and reviewing previous charts. Her blood work shows hyponatremia with sodium of 151 , creatinine of 2.99 and her baseline creatinine is 0.8. Most probably patient has poor oral intake and may not have access to water. Detailed history and review of systems unobtainable. Past Medical History Cardiac Medical History: Reports: Hyperlipidema, Hypertension Pulmonary Medical History: Reports: Tuberculosis Endocrine Medical History: Reports: Hypothyroidism Musculoskeltal Medical History: Reports: Arthritis Skin Medical History: Reports: Eczema Psychiatric Medical History: Reports: Dementia Past Surgical History Past Surgical History: Reports: Orthopedic Surgery - right hip ORIF Social History Smoking Status: Unknown if Ever Smoked Frequency of Alcohol Use: None Hx Recreational Drug Use: No Hx Prescription Drug Abuse: No - Advance Directive Resuscitation Status: Full Code Family History Family History: Reviewed & Not Pertinent Parental Family History Reviewed: Yes Children Family History Reviewed: Yes Sibling(s) Family History Reviewed.: Yes Medication/Allergy Home Medications: Acetaminophen [Tylenol 325 mg Tablet] 650 mg PO TID MDD ALTERNATING WITH MOTRIN 02/14/18 Alprazolam [Xanax] 0.25 mg PO TIDP PRN 02/14/18 Amlodipine Besylate [Norvasc 10 mg Tablet] 10 mg PO QAM 02/14/18 Atorvastatin Calcium [Lipitor 20 mg Tablet] 20 mg PO QPM 02/14/18 Bacitracin [Bacitracin Oph Oint 3.5 gm] 1 applic OS QID 02/14/18 Buspirone HCl [Buspar 10 mg Tablet] 10 mg PO BID 02/14/18 Clobetasol Propionate [Temovate 0.05% Cream 15 gm] 1 applic TOP BIDP PRN Divalproex Sodium [Depakote ER 250 mg Tablet] 500 mg PO BID 02/14/18 Docusate Sodium [Colace 100 mg Capsule] 100 mg PO BID 02/14/18 Fluoride (Sodium) [Prevident 5000 Plus] 1 applic PO BID 02/14/18 Furosemide [Lasix 40 mg Tablet] 40 mg PO QAM 02/14/18 Ibuprofen [Motrin 600 mg Tablet] 600 mg PO QIDP PRN 02/14/18 Ketoconazole [Nizoral 2% Shampoo 120 ml Bottle] 1 applic TOP ASDIR PRN 02/14/18 Levothyroxine Sodium [Synthroid] 100 mcg PO Q6AM 02/14/18 Lisinopril [Zestril] 10 mg PO QAM 02/14/18 Loratadine [Claritin 10 mg Tablet] 10 mg PO QAM 02/14/18 Menthol/Zinc Oxide [Calmoseptine Ointment] 1 applic TOP DAILYP PRN 02/14/18 Metoprolol Tartrate [Lopressor 25 mg Tablet] 25 mg PO BID 02/14/18 Rivastigmine [Exelon 9.5 mg/24 Hr Transdermal Patch] 1 patch TD DAILY 02/14/18 Sertraline HCl [Zoloft] 100 mg PO QAM 02/14/18 Tramadol HCl [Ultram 50 mg Tablet] 50 mg PO Q6HP PRN 02/14/18 Allergies/Adverse Reactions: clonazepam [From Klonopin] Allergy (Verified 05/27/16 00:52) codeine [Codeine] Allergy (Verified 05/27/16 00:52) erythromycin base [Erythromycin Base] Allergy (Verified 05/27/16 00:52) hydrocodone [Hydrocodone] Allergy (Verified 05/27/16 00:52) Delirium hydrocodone bitartrate [From Vicodin] Allergy (Verified 05/27/16 00:52) Delirium Sulfa (Sulfonamide Antibiotics) Allergy (Verified 05/27/16 00:52) Skin Redness morphine [Morphine] Adverse Reaction (Intermediate, Verified 05/27/16 00:52) confusion, agitation oxycodone HCl [From Percocet] Adverse Reaction (Verified 05/27/16 00:52) Confusion strawberry [[place]] Adverse Reaction (Verified 05/27/16 00:52) Tetanus Vaccines and Toxoid [Tetanus] Adverse Reaction (Verified 05/27/16 00:52) Review of Systems ROS unobtainable: Due to mental status Physical Exam Vital Signs: Temp Pulse Resp BP Pulse Ox 97.6 F 77 13 109/48 L 93 02/14/18 17:17 02/14/18 21:00 02/14/18 22:40 02/14/18 22:40 02/14/18 22:40 General appearance: PRESENT: no acute distress, well-developed, well-nourished Head exam: PRESENT: atraumatic, normocephalic Mouth exam: PRESENT: dry mucosa Respiratory exam: PRESENT: clear to auscultation trupti. ABSENT: rales, rhonchi, wheezes Cardiovascular exam: PRESENT: RRR. ABSENT: diastolic murmur, rubs, systolic murmur GI/Abdominal exam: PRESENT: normal bowel sounds, soft. ABSENT: distended, guarding, mass, organolmegaly, rebound, tenderness Results Impressions: Chest X-Ray 02/14/18 17:35 IMPRESSION: Mild subsegmental atelectasis in the left lung base. Assessment & Plan - Diagnosis (1) Complicated UTI (urinary tract infection) Is this a current diagnosis for this admission?: Yes Plan: It has been started on ceftriaxone. And will adjust her antibiotic based on her urine culture and clinical progress. (2) Altered mental status Qualifiers: Altered mental status type: disorientation Qualified Code(s): R41.0 - Disorientation, unspecified Is this a current diagnosis for this admission?: Yes Plan: Patient has underlying dementia and UTI precipitated the acute confusional state. (3) Acute kidney injury Is this a current diagnosis for this admission?: Yes Plan: Since patient hypernatremia I will cautiously hydrate her with D5 W (4) Hypertension Qualifiers: Hypertension type: essential hypertension Qualified Code(s): I10 - Essential (primary) hypertension Is this a current diagnosis for this admission?: Yes Plan: I will hold her lisinopril in the face of acute kidney injury. Monitor her blood pressure (5) Dementia Qualifiers: Dementia type: unspecified type Is this a current diagnosis for this admission?: Yes Plan: Continue his home medication (6) Diastolic heart failure Qualifiers: Heart failure chronicity: chronic Qualified Code(s): I50.32 - Chronic diastolic (congestive) heart failure Is this a current diagnosis for this admission?: Yes Plan: Compensated. Continue her home medications. (7) Seizure disorder Is this a current diagnosis for this admission?: Yes Plan: Continue her valproic acid (8) Hypothyroidism Qualifiers: Hypothyroidism type: acquired Qualified Code(s): E03.9 - Hypothyroidism, unspecified Is this a current diagnosis for this admission?: Yes Plan: Continue her Synthroid (9) Dementia Qualifiers: Dementia type: Alzheimer's disease Alzheimer's disease onset: unspecified onset Dementia behavioral disturbance: without behavioral disturbance Qualified Code(s): G30.9 - Alzheimer's disease, unspecified Is this a current diagnosis for this admission?: Yes Plan: Continue her home medication - Inpatient Certification Medical Necessity: Need Close Monitoring Due to Risk of Patient Decompensation, Need For IV Fluids, Need for IV Antibiotics
[2018-02-15 02:43] LABS: VENOUS BLOOD BASE EXCESS -2.6 mmol/L; VENOUS BLOOD HCO3 22.3 mmol/L (20-32); VENOUS BLOOD PCO2 39.2 mmHg (35-63); VENOUS BLOOD PH 7.37 (7.30-7.42)
[2018-02-15 03:19] LABS: ANION GAP 16 (5-19); BLOOD UREA NITROGEN 85 mg/dL (7-20); CALCIUM 9.7 mg/dL (8.4-10.2); CARBON DIOXIDE 19 mmol/L (22-30); CHLORIDE 118 mmol/L (98-107); GLUCOSE 118 mg/dL (75-110); POTASSIUM 4.7 mmol/L (3.6-5.0); SODIUM 153.4 mmol/L (137-145)
[2018-02-15] MEDS: DEXTROSE 5%-1/2 NORMAL SALINE 1,000 ML IV PRN (03:55)
[2018-02-15] MEDS: LANSOPRAZOLE 30 MG TAB.RAP.DR PO SCH (05:46)
[2018-02-15 06:05] LABS: HEMATOCRIT 36.9 % (36.0-47.0); HEMOGLOBIN 12.3 g/dL (12.0-15.5); MEAN CORPUSCULAR HEMOGLOBIN 29.5 pg (27.0-33.4); MEAN CORPUSCULAR HGB CONC 33.4 g/dL (32.0-36.0); MEAN CORPUSCULAR VOLUME 89 fl (80-97); PLATELET COUNT 216 10^3/uL (150-450); RED BLOOD COUNT 4.17 10^6/uL (3.72-5.28); RED CELL DISTRIBUTION WIDTH 16.2 % (11.5-14.0)
[2018-02-15] MEDS: LEVOTHYROXINE SODIUM 0.1 MG TABLET PO SCH (06:19)
[2018-02-15] MEDS: HEPARIN SOD (PORCINE) 5,000 UNIT/ML 1 ML SYRINGE SUBCUT SCH ×3 (06:19→22:32)
[2018-02-15 06:46] LABS: ABSOLUTE MONOCYTES # (MANUAL) 0.6 10^3/uL (0.1-1.4); ABSOLUTE NEUTROPHILS# (MANUAL) 7.3 10^3/uL (1.7-8.2); BAND NEUTROPHILS % (MANUAL) 1 % (3-5); BASOPHILS % (MANUAL) 1 % (0-2); EOSINOPHILS % (MANUAL) 0 % (0-6); LYMPHOCYTES % (MANUAL) 19 % (13-45); METAMYELOCYTES % (MANUAL) 2 % (0); MONOCYTES % (MANUAL) 6 % (3-13); SEGMENTED NEUTROPHILS % (MAN) 68 % (42-78); TOTAL CELLS COUNTED 100
[2018-02-15 06:48] LABS: PLATELET COMMENT ADEQUATE; RBC MORPHOLOGY COMMENT NORMO-CYTIC/CHROMIC
[2018-02-15 06:49] LABS: MYELOCYTES % (MANUAL) 2 % (0)
[2018-02-15] MEDS: SERTRALINE HCL 50 MG TABLET PO SCH (08:24)
[2018-02-15] MEDS: LORATADINE 10 MG TABLET PO SCH (08:24)
[2018-02-15] MEDS: FUROSEMIDE 40 MG TABLET PO SCH (08:25)
[2018-02-15] MEDS: AMLODIPINE BESYLATE 10 MG TABLET PO SCH (08:25)
[2018-02-15] MEDS: BUSPIRONE HCL 10 MG TABLET PO SCH ×2 (09:31→18:16)
[2018-02-15] MEDS: DOCUSATE SODIUM 100 MG CAPSULE PO SCH ×2 (09:32→18:16)
[2018-02-15] MEDS: RIVASTIGMINE 9.5 MG/24 HR PATCH.TD24 TD SCH (09:32)
[2018-02-15] MEDS ORDERED: CEFTRIAXONE 2 GM/D5W RTU 2 GM/50 ML RTUPB IV SCH (10:00)
[2018-02-15] MEDS ORDERED: RIVASTIGMINE 9.5 MG/24 HR PATCH.TD24 TD SCH (10:00)
[2018-02-15] MEDS: DIVALPROEX SODIUM 250 MG TAB.SR.24H PO SCH ×2 (10:21→18:19)
[2018-02-15] MEDS: BACITRACIN OPH OINT 3.5 GM OS SCH ×3 (14:37→22:32)
--- NOTE | 2018-02-15 17:19 | PDOC PROGRESS REPORT ---
Subjective Progress Note for:: 02/15/18 Subjective:: CYN WARNER is a 87 year old female patient with past medical history of seizure disorder, hypertension, hypothyroidism, diastolic heart failure and dementia brought from [facility] for altered mental status and tiredness. Admitted to [facility] on 02/14/2018 for ARF, HYPERnatremia, dehydration and UTI. The patient was seen this morning on rounds, she is resting comfortably in bed on room air. The patient is alert and oriented to self only. She is able to follow commands. She denies any complaints although due to her dementia her ROS is not very reliable. Reason For Visit: ALTERED MENTAL STATUS, COMPLICATED UTI Physical Exam Vital Signs: Temp Pulse Resp BP Pulse Ox 98.4 F 76 18 102/61 94 02/15/18 16:00 02/15/18 16:00 02/15/18 16:00 02/15/18 16:00 02/15/18 16:00 Intake & Output 02/14/18 02/15/18 02/16/18 06:59 06:59 06:59 Intake Total 375 Balance 375 Weight 60.2 kg General appearance: PRESENT: no acute distress, well-developed Head exam: PRESENT: atraumatic Eye exam: PRESENT: conjunctival injection - L conjunctivitis. Patient currently being treated with bacitracin for chronic conjunctivitis., PERRLA Mouth exam: PRESENT: moist Neck exam: PRESENT: full ROM Respiratory exam: PRESENT: chest wall tenderness, symmetrical, unlabored Cardiovascular exam: PRESENT: +S1, +S2 Pulses: PRESENT: normal radial pulses Vascular exam: PRESENT: normal capillary refill GI/Abdominal exam: PRESENT: normal bowel sounds, soft. ABSENT: tenderness Rectal exam: PRESENT: deferred Gentrourinary exam: PRESENT: other - incontinence Extremities exam: PRESENT: full ROM Musculoskeletal exam: PRESENT: full ROM. ABSENT: ambulatory Neurological exam: PRESENT: alert, awake, oriented to person, oriented to place , oriented to time, oriented to situation Psychiatric exam: PRESENT: other - confusion. dementia Skin exam: PRESENT: dry, intact, warm Results Laboratory Results: 02/15/18 04:25 02/15/18 02:36 02/15/18 02/15/18 02/15/18 02:36 02:36 02:36 WBC Cancelled RBC Cancelled Hgb Cancelled Hct Cancelled MCV Cancelled MCH Cancelled MCHC Cancelled RDW Cancelled Plt Count Cancelled Seg Neutrophils % Cancelled Lymphocytes % Cancelled Monocytes % Cancelled Eosinophils % Cancelled Basophils % Cancelled Absolute Neutrophils Cancelled Absolute Lymphocytes Cancelled Absolute Monocytes Cancelled Absolute Eosinophils Cancelled Absolute Basophils Cancelled VBG pH 7.37 VBG pCO2 39.2 VBG HCO3 22.3 VBG Base Excess -2.6 Sodium 153.4 H Potassium 4.7 Chloride 118 H Carbon Dioxide 19 L Anion Gap 16 BUN 85 H Creatinine 2.22 H Est GFR ( Amer) 25 L Est GFR (Non-Af Amer) 21 L Glucose 118 H Calcium 9.7 02/15/18 04:25 WBC 10.0 RBC 4.17 Hgb 12.3 Hct 36.9 MCV 89 MCH 29.5 MCHC 33.4 RDW 16.2 H Plt Count 216 Seg Neutrophils % Not Reportable Lymphocytes % Not Reportable Monocytes % Not Reportable Eosinophils % Not Reportable Basophils % Not Reportable Absolute Neutrophils Not Reportable Absolute Lymphocytes Not Reportable Absolute Monocytes Not Reportable Absolute Eosinophils Not Reportable Absolute Basophils Not Reportable VBG pH VBG pCO2 VBG HCO3 VBG Base Excess Sodium Potassium Chloride Carbon Dioxide Anion Gap BUN Creatinine Est GFR ( Amer) Est GFR (Non-Af Amer) Glucose Calcium Impressions: Chest X-Ray 02/14/18 17:35 IMPRESSION: Mild subsegmental atelectasis in the left lung base. Status: Imported from PACS Assessment & Plan - Diagnosis (1) CUONG (acute kidney injury) Is this a current diagnosis for this admission?: Yes Plan: Likely secondary to dehydration stemming from poor PO intake and infection, as evidenced by hypernatremia Cause is prerenal due to BUN:Cr ratio > 20:1 Treated with 1 L bolus in ED, continue maintenance IVF Trend daily BMP (2) Complicated UTI (urinary tract infection) Is this a current diagnosis for this admission?: Yes Plan: Likely secondary to urinary incontinence and poor perineal hygiene. Urinalysis indicative of UTI. Urine cultures pending. Extensive history and hospital admissions secondary to UTI. Offending organism is almost always E. coli or MRSA resistant to multiple antibiotics. Rocephin initiated in emergency department, but patient has history of resistance. Discontinue Rocephin, initiate vancomycin and cefepime. (3) Seizure disorder Is this a current diagnosis for this admission?: Yes Plan: History of seizures per [facility] records. Restart Depakote. Check Depakote level in a.m. (4) Dementia Qualifiers: Dementia type: unspecified type Is this a current diagnosis for this admission?: Yes Plan: Patient has history of dementia. According to [facility] records, the patient's baseline is alert and oriented to self Continue Exelon patch - Time Time Spent with patient: 15-24 minutes Medications reviewed and adjusted accordingly: Yes Anticipated discharge: SNF - Inpatient Certification Based on my medical assessment, after consideration of the patient's comorbidities, presenting symptoms, or acuity I expect that the services needed warrant INPATIENT care.: Yes I certify that my determination is in accordance with my understanding of Medicare's requirements for reasonable and necessary INPATIENT services [42 CFR 412.3e].: Yes Medical Necessity: Risk of Complication if Not Cared For in Hospital - Plan Summary Plan Summary: Treat dehydration with IVF. Monitor daily chemistries. Continue IV antibiotics for treatment of UTI. Ultimately, the plan is to transfer the patient back to her long-term care facility.
[2018-02-15] MEDS ORDERED: VANCOMYCIN HCL INJ 1000 MG VIAL IV PRN (17:29)
[2018-02-15] MEDS ORDERED: VANCOMYCIN HCL 0 MG in DEXTROSE 5%-WATER 250 ML IV NR (17:30)
[2018-02-15] MEDS: ATORVASTATIN CALCIUM 20 MG TABLET PO SCH (18:15)
[2018-02-15] MEDS: METOPROLOL TARTRATE 25 MG TABLET PO SCH (18:15)
[2018-02-15] MEDS: LISINOPRIL 10 MG TABLET PO SCH (18:19)
[2018-02-15] MEDS ORDERED: VANCOMYCIN HCL 1,000 MG in DEXTROSE 5%-WATER 250 ML IV ONE (18:30)
[2018-02-15] MEDS ORDERED: VANCOMYCIN HCL INJ 1000 MG VIAL ONE (19:06)
[2018-02-15] MEDS ORDERED: CEFEPIME 2 GM/D5W RTU 2 GM/50 ML RTUPB IV SCH (22:00)
[2018-02-15] MEDS ORDERED: CEFEPIME 2 GM/D5W RTU 2 GM/50 ML RTUPB IV ONE (22:38)
[2018-02-16] MEDS: DEXTROSE 5%-1/2 NORMAL SALINE 1,000 ML IV PRN (02:43)
[2018-02-16] MEDS: LANSOPRAZOLE 30 MG TAB.RAP.DR PO SCH (05:10)
[2018-02-16] MEDS: BACITRACIN OPH OINT 3.5 GM OS SCH ×5 (05:10→21:23)
[2018-02-16] MEDS: LEVOTHYROXINE SODIUM 0.1 MG TABLET PO SCH ×2 (06:34→09:27)
[2018-02-16] MEDS: HEPARIN SOD (PORCINE) 5,000 UNIT/ML 1 ML SYRINGE SUBCUT SCH ×3 (06:35→21:39)
[2018-02-16] MEDS: BUSPIRONE HCL 10 MG TABLET PO SCH ×2 (09:27→18:16)
[2018-02-16] MEDS: RIVASTIGMINE 9.5 MG/24 HR PATCH.TD24 TD SCH (09:28)
[2018-02-16] MEDS: SERTRALINE HCL 50 MG TABLET PO SCH (09:28)
[2018-02-16] MEDS: LORATADINE 10 MG TABLET PO SCH (09:28)
[2018-02-16] MEDS: DIVALPROEX SODIUM 250 MG TAB.SR.24H PO SCH ×2 (09:28→18:17)
[2018-02-16] MEDS: CEFEPIME 2 GM/D5W RTU 2 GM/50 ML RTUPB IV SCH (09:31)
[2018-02-16] MEDS: DOCUSATE SODIUM 100 MG CAPSULE PO SCH ×2 (09:31→18:16)
[2018-02-16] MEDS: AMLODIPINE BESYLATE 10 MG TABLET PO SCH (09:31)
[2018-02-16] MEDS: FUROSEMIDE 40 MG TABLET PO SCH (09:31)
[2018-02-16] MEDS: METOPROLOL TARTRATE 25 MG TABLET PO SCH ×2 (09:31→18:17)
[2018-02-16] MEDS ORDERED: VANCOMYCIN HCL 1,000 MG in DEXTROSE 5%-WATER 250 ML IV SCH (11:00)
[2018-02-16] MEDS: LISINOPRIL 10 MG TABLET PO SCH (18:17)
[2018-02-16] MEDS: ATORVASTATIN CALCIUM 20 MG TABLET PO SCH (18:17)
[2018-02-17] MEDS: DEXTROSE 5%-1/2 NORMAL SALINE 1,000 ML IV PRN (02:01)
--- NOTE | 2018-02-17 05:52 | PDOC PROGRESS REPORT ---
Subjective Progress Note for:: 02/16/18 Subjective:: CYN WARNER is a 87 year old female patient with past medical history of seizure disorder, hypertension, hypothyroidism, diastolic heart failure and dementia brought from [facility] for altered mental status and tiredness. Ad[facility] to [facility] on 02/14/2018 for ARF, HYPERnatremia, dehydration and UTI. The patient was seen this morning on rounds, she is resting comfortably in bed on room air. The patient is alert and oriented to self only. She is able to follow commands. She denies any complaints although due to her dementia her ROS is not very reliable. Reason For Visit: ALTERED MENTAL STATUS, COMPLICATED UTI Physical Exam Vital Signs: Temp Pulse Resp BP Pulse Ox 98.7 F 74 18 138/58 H 95 02/16/18 23:05 02/17/18 03:48 02/16/18 23:05 02/17/18 03:48 02/17/18 04:00 Pulse Oximeter Continuous Start: 02/16/18 09: 19 Freq: RTQ4 Status: Active Document 02/17/18 04:00 [facility] (Rec: 02/17/18 05:31 [facility] [id number]) Pulse Oximetry Assessment Oxygen Saturation (92-100) 95 Oxygen Delivery Method Room Air Equipment Usage Equipment in Use Continuous SpO2 Machine # 9 Intake & Output 02/15/18 02/16/18 02/17/18 06:59 06:59 06:59 Intake Total 2175 1318 Balance 2175 1318 Weight 60.2 kg 61.9 kg General appearance: PRESENT: no acute distress Eye exam: PRESENT: conjunctival injection - CHRONIC L EYE CONJUNCTIVITIS, conjunctiva pink, PERRLA Mouth exam: PRESENT: moist Neck exam: PRESENT: full ROM Respiratory exam: PRESENT: clear to auscultation trupti, symmetrical, unlabored Cardiovascular exam: PRESENT: +S1, +S2 Pulses: PRESENT: normal radial pulses, normal dorsalis pedis pul Vascular exam: PRESENT: normal capillary refill GI/Abdominal exam: PRESENT: normal bowel sounds, soft. ABSENT: tenderness Rectal exam: PRESENT: deferred Extremities exam: ABSENT: full ROM, joint swelling, pedal edema Musculoskeletal exam: ABSENT: ambulatory, full ROM Neurological exam: PRESENT: oriented to person. ABSENT: alert, oriented to place, oriented to time, oriented to situation Skin exam: PRESENT: intact, pallor Results Laboratory Results: 02/15/18 04:25 02/15/18 02:36 Impressions: Chest X-Ray 02/14/18 17:35 IMPRESSION: Mild subsegmental atelectasis in the left lung base. Status: Imported from PACS Assessment & Plan - Diagnosis (1) CUONG (acute kidney injury) Is this a current diagnosis for this admission?: Yes Plan: Likely secondary to dehydration stemming from poor PO intake and infection, as evidenced by hypernatremia Baseline creatinine (based on previous records) is 1.0 Cause is prerenal due to BUN:Cr ratio > 20:1 Treated with 1 L bolus in ED, continue maintenance IVF Trend daily BMP (2) Complicated UTI (urinary tract infection) Is this a current diagnosis for this admission?: Yes Plan: Likely secondary to urinary incontinence and poor perineal hygiene. Urinalysis indicative of UTI. Urine cultures pending. Extensive history and hospital admissions secondary to UTI. Offending organism is almost always MDR E. coli or MRSA. Rocephin initiated in emergency department, but patient has history of resistance. Discontinue Rocephin, initiate vancomycin and cefepime. Will narrow antibiotic spectrum once urine and blood cultures are resulted. (3) Seizure disorder Is this a current diagnosis for this admission?: Yes Plan: History of seizures [facility]. Subtherapeutic Depakote level (34) Increased Depakote from 500mg PO BID to 750mg PO BID Will need to monitor Depakote levels (4) Dementia Qualifiers: Dementia type: unspecified type Is this a current diagnosis for this admission?: Yes Plan: Patient has history of dementia. According to [facility] records, the patient's baseline is alert and oriented to self Continue Exelon patch - Time Time Spent with patient: 15-24 minutes Medications reviewed and adjusted accordingly: Yes Anticipated discharge: SNF - Inpatient Certification Based on my medical assessment, after consideration of the patient's comorbidities, presenting symptoms, or acuity I expect that the services needed warrant INPATIENT care.: Yes I certify that my determination is in accordance with my understanding of Medicare's requirements for reasonable and necessary INPATIENT services [42 CFR 412.3e].: Yes Medical Necessity: Need for IV Antibiotics
[2018-02-17] MEDS: BACITRACIN OPH OINT 3.5 GM OS SCH ×2 (05:59→09:09)
[2018-02-17] MEDS: LANSOPRAZOLE 30 MG TAB.RAP.DR PO SCH (06:00)
[2018-02-17] MEDS: LEVOTHYROXINE SODIUM 0.1 MG TABLET PO SCH (06:10)
[2018-02-17] MEDS: METOPROLOL TARTRATE 25 MG TABLET PO SCH ×2 (06:11→18:25)
[2018-02-17] MEDS: HEPARIN SOD (PORCINE) 5,000 UNIT/ML 1 ML SYRINGE SUBCUT SCH ×3 (06:18→21:49)
[2018-02-17 06:51] LABS: HEMOGLOBIN 11.8 g/dL (12.0-15.5); MEAN CORPUSCULAR HEMOGLOBIN 29.8 pg (27.0-33.4); MEAN CORPUSCULAR HGB CONC 33.7 g/dL (32.0-36.0); MEAN CORPUSCULAR VOLUME 88 fl (80-97); PLATELET COUNT 124 10^3/uL (150-450); RED BLOOD COUNT 3.96 10^6/uL (3.72-5.28); RED CELL DISTRIBUTION WIDTH 16.2 % (11.5-14.0); WHITE BLOOD COUNT 14.3 10^3/uL (4.0-10.5)
[2018-02-17 07:07] LABS: ALANINE AMINOTRANSFERASE 20 U/L (9-52); ALBUMIN 2.9 g/dL (3.5-5.0); ALKALINE PHOSPHATASE 227 U/L (38-126); ANION GAP 16 (5-19); ASPARTATE AMINO TRANSFERASE 22 U/L (14-36); BILIRUBIN,DIRECT 0.5 mg/dL (0.0-0.4); BILIRUBIN,TOTAL 0.5 mg/dL (0.2-1.3); BLOOD UREA NITROGEN 25 mg/dL (7-20); CALCIUM 9.2 mg/dL (8.4-10.2); CARBON DIOXIDE 22 mmol/L (22-30); CHLORIDE 114 mmol/L (98-107); GLUCOSE 123 mg/dL (75-110); POTASSIUM 3.1 mmol/L (3.6-5.0); SODIUM 151.6 mmol/L (137-145); TOTAL PROTEIN 6.9 g/dL (6.3-8.2)
[2018-02-17] MEDS ORDERED: POTASSI CL 20 MEQ/D5-1/4NS 1L 1,000 ML IV PRN (08:24)
[2018-02-17] MEDS: SERTRALINE HCL 50 MG TABLET PO SCH (09:07)
[2018-02-17] MEDS: CEFEPIME 2 GM/D5W RTU 2 GM/50 ML RTUPB IV SCH (09:07)
[2018-02-17] MEDS: DIVALPROEX SODIUM 250 MG TAB.SR.24H PO SCH ×2 (09:07→18:17)
[2018-02-17] MEDS: RIVASTIGMINE 9.5 MG/24 HR PATCH.TD24 TD SCH (09:07)
[2018-02-17] MEDS: LORATADINE 10 MG TABLET PO SCH (09:08)
[2018-02-17] MEDS: FUROSEMIDE 40 MG TABLET PO SCH (09:08)
[2018-02-17] MEDS: AMLODIPINE BESYLATE 10 MG TABLET PO SCH (09:09)
[2018-02-17] MEDS: BUSPIRONE HCL 10 MG TABLET PO SCH ×2 (09:09→18:25)
[2018-02-17] MEDS: DOCUSATE SODIUM 100 MG CAPSULE PO SCH ×2 (09:09→18:25)
[2018-02-17 10:05] LABS: PATH REVIEW PATHOLOGIST REVIEWED
[2018-02-17 14:36] LABS: ANION GAP 13 (5-19); BLOOD UREA NITROGEN 21 mg/dL (7-20); CALCIUM 8.9 mg/dL (8.4-10.2); CARBON DIOXIDE 23 mmol/L (22-30); CHLORIDE 110 mmol/L (98-107); GLUCOSE 141 mg/dL (75-110); POTASSIUM 3.1 mmol/L (3.6-5.0); SODIUM 146.4 mmol/L (137-145)
--- NOTE | 2018-02-17 15:55 | PDOC PROGRESS REPORT ---
Subjective Progress Note for:: 02/17/18 Subjective:: CYN WARNER is a 87 year old female patient with past medical history of seizure disorder, hypertension, hypothyroidism, diastolic heart failure and dementia brought from [facility] for altered mental status and tiredness. Admitted to [facility] on 02/14/2018 for ARF, HYPERnatremia, dehydration and UTI. The patient was seen on rounds with her daughter present. The daughter tells me that at baseline the patient is conversational but oriented only to herself, requires assistance with feedings, and is not ambulatory but does self propel in the wheelchair. The patient is awake briefly and is able to deny any discomfort but does not answer any further questions. The patient's daughter does admit to frequent urinary tract infections and confirms CODE STATUS as a DNR, but is unable to specify whether or not they are interested in pursuing palliative/hospice care at this time. Reason For Visit: ALTERED MENTAL STATUS, COMPLICATED UTI Physical Exam Vital Signs: Temp Pulse Resp BP Pulse Ox 98.5 F 76 16 118/55 L 96 02/17/18 12:00 02/17/18 12:00 02/17/18 12:00 02/17/18 12:00 02/17/18 12:00 Pulse Oximeter Continuous Start: 02/16/18 09: 19 Freq: RTQ4 Status: Active Document 02/17/18 12:00 [facility] (Rec: 02/17/18 12:03 [facility] [email or web address]) Pulse Oximetry Assessment Oxygen Saturation (92-100) 97 Oxygen Delivery Method Room Air Equipment Usage Equipment in Use Continuous SpO2 Machine # 9 Intake & Output 02/16/18 02/17/18 02/18/18 06:59 06:59 06:59 Intake Total 2175 2518 Balance 2175 2518 Weight 61.9 kg 62.6 kg General appearance: PRESENT: no acute distress, well-developed, well-nourished, other - Overweight Head exam: PRESENT: atraumatic, normocephalic Eye exam: PRESENT: conjunctival injection - Chronic left eye conjunctivitis, conjunctiva pink, EOMI, PERRLA. ABSENT: scleral icterus Ear exam: PRESENT: normal external ear exam Mouth exam: PRESENT: moist, tongue midline Neck exam: ABSENT: carotid bruit, JVD, lymphadenopathy, thyromegaly Respiratory exam: PRESENT: clear to auscultation trupti. ABSENT: rales, rhonchi, wheezes Cardiovascular exam: PRESENT: RRR. ABSENT: diastolic murmur, rubs, systolic murmur Pulses: PRESENT: normal dorsalis pedis pul Vascular exam: PRESENT: normal capillary refill GI/Abdominal exam: PRESENT: normal bowel sounds, soft. ABSENT: distended, guarding, mass, organolmegaly, rebound, tenderness Rectal exam: PRESENT: deferred Extremities exam: PRESENT: full ROM. ABSENT: calf tenderness, clubbing, pedal edema Neurological exam: PRESENT: alert, awake, CN II-XII grossly intact. ABSENT: oriented to person, oriented to place, oriented to time, oriented to situation, motor sensory deficit Psychiatric exam: ABSENT: homicidal ideation, suicidal ideation Skin exam: PRESENT: dry, intact, warm. ABSENT: cyanosis, rash Results Laboratory Results: 02/17/18 06:40 02/17/18 14:15 02/17/18 02/17/18 02/17/18 06:40 06:40 14:15 WBC 14.3 H RBC 3.96 Hgb 11.8 L Hct 35.0 L MCV 88 MCH 29.8 MCHC 33.7 RDW 16.2 H Plt Count 124 L Sodium 151.6 H 146.4 H Potassium 3.1 L 3.1 L Chloride 114 H 110 H Carbon Dioxide 22 23 Anion Gap 16 13 BUN 25 H 21 H Creatinine 1.04 0.96 Est GFR ( Amer) > 60 > 60 Est GFR (Non-Af Amer) 50 L 55 L Glucose 123 H 141 H Calcium 9.2 8.9 Total Bilirubin 0.5 AST 22 ALT 20 Alkaline Phosphatase 227 H Total Protein 6.9 Albumin 2.9 L Impressions: Chest X-Ray 02/14/18 17:35 IMPRESSION: Mild subsegmental atelectasis in the left lung base. Assessment & Plan - Diagnosis (1) CUONG (acute kidney injury) Is this a current diagnosis for this admission?: Yes Plan: Improved; secondary to dehydration related to poor p.o. intake and infection. This is evidenced by hypernatremia, elevated BUN and creatinine above baseline. Creatinine has trended down from 2.99--> 0.96. BUN 90--> 21. Sodium is trending down. Continue maintenance IV fluids. Avoid nephrotoxic medications as able; pharmacy to dose vancomycin. Monitor daily chemistries. (2) Complicated UTI (urinary tract infection) Is this a current diagnosis for this admission?: Yes Plan: Likely secondary to urinary incontinence and poor perineal hygiene. Patient's family reports frequent history of the same. Urinalysis indicative of UTI. Urine culture reveals E. coli. We will transition to IV Ancef based on sensitivity results. Continue gentle IV fluid hydration. (3) Encephalopathy Is this a current diagnosis for this admission?: Yes Plan: Acute metabolic encephalopathy, complicated by baseline advanced dementia; resulting in decreased mental status from baseline secondary to dehydration, urinary tract infection, and bacteremia. Slightly improved today as the patient was arousable and conversational, though remains disoriented x4. Continue plan as above. Supportive care. Provide for safety. (4) Bacteremia Is this a current diagnosis for this admission?: Yes Plan: First set of blood cultures are positive for MRSA and Staph epidermidis with multiple resistances. Possible contaminants from skin ligia as urinalysis shows E. coli and there are no other apparent sources of infection. However, given patient's decreased mental status and multiple admissions for MRSA, will treat with IV antibiotics. Patient has remained afebrile since admission and leukocytes are trending down. Repeat blood cultures have no growth at 48 hours. Continue IV vancomycin. (5) Seizure disorder Is this a current diagnosis for this admission?: Yes Plan: History of [facility]. Subtherapeutic Depakote level (34). Depakote is increased from 500 twice daily to 750 mg twice daily. We will need to recheck Depakote levels and 72 hours. Seizure precautions. (6) Dementia Qualifiers: Dementia type: Alzheimer's disease Alzheimer's disease onset: unspecified onset Dementia behavioral disturbance: without behavioral disturbance Qualified Code(s): G30.9 - Alzheimer's disease, unspecified Is this a current diagnosis for this admission?: Yes Plan: Patient with advanced dementia; per [facility] records and patient's daughter , the patient is normally alert and oriented to self only. The daughter reports that she is conversational but "does not make a bit of sense," requires assistance with meals, and is able to self propel in wheelchair. The patient's daughter does indicate desire that her mother be made a DNR but declines to discuss palate of care/hospice services at this time. Continue Exelon patch. Supportive care.
[2018-02-17] MEDS: ATORVASTATIN CALCIUM 20 MG TABLET PO SCH (18:17)
[2018-02-17] MEDS: LISINOPRIL 10 MG TABLET PO SCH (18:25)
[2018-02-17] MEDS: VANCOMYCIN HCL 750 MG in DEXTROSE 5%-WATER 250 ML IV SCH (18:34)
[2018-02-17] MEDS: CEFAZOLIN 1 GM/D5W RTU 1 GM/50 ML RTUPB IV SCH (21:49)
[2018-02-18] MEDS: POTASSI CL 20 MEQ/D5-1/2NS 1L 1,000 ML IV PRN ×2 (02:19→13:02)
[2018-02-18] MEDS: METOPROLOL TARTRATE 25 MG TABLET PO SCH ×2 (05:34→17:38)
[2018-02-18] MEDS: LANSOPRAZOLE 30 MG TAB.RAP.DR PO SCH (05:35)
[2018-02-18] MEDS: LEVOTHYROXINE SODIUM 0.1 MG TABLET PO SCH (05:35)
[2018-02-18] MEDS: HEPARIN SOD (PORCINE) 5,000 UNIT/ML 1 ML SYRINGE SUBCUT SCH (05:36)
[2018-02-18 07:28] LABS: ANION GAP 10 (5-19); BLOOD UREA NITROGEN 15 mg/dL (7-20); CALCIUM 8.6 mg/dL (8.4-10.2); CARBON DIOXIDE 23 mmol/L (22-30); CHLORIDE 108 mmol/L (98-107); GLUCOSE 131 mg/dL (75-110); POTASSIUM 3.1 mmol/L (3.6-5.0); SODIUM 140.8 mmol/L (137-145)
[2018-02-18 07:30] LABS: HEMATOCRIT 32.5 % (36.0-47.0); MEAN CORPUSCULAR HEMOGLOBIN 29.5 pg (27.0-33.4); MEAN CORPUSCULAR HGB CONC 33.7 g/dL (32.0-36.0); MEAN CORPUSCULAR VOLUME 88 fl (80-97); RED BLOOD COUNT 3.71 10^6/uL (3.72-5.28); RED CELL DISTRIBUTION WIDTH 15.6 % (11.5-14.0); WHITE BLOOD COUNT 13.7 10^3/uL (4.0-10.5)
[2018-02-18 08:49] LABS: PLATELET COUNT 74 10^3/uL (150-450)
[2018-02-18] MEDS: CEFAZOLIN 1 GM/D5W RTU 1 GM/50 ML RTUPB IV SCH ×2 (10:06→23:54)
[2018-02-18] MEDS: DIVALPROEX SODIUM 250 MG TAB.SR.24H PO SCH ×2 (10:16→17:38)
[2018-02-18] MEDS: BUSPIRONE HCL 10 MG TABLET PO SCH ×2 (10:16→17:39)
[2018-02-18] MEDS: FUROSEMIDE 40 MG TABLET PO SCH (10:16)
[2018-02-18] MEDS: SERTRALINE HCL 50 MG TABLET PO SCH (10:16)
[2018-02-18] MEDS: DOCUSATE SODIUM 100 MG CAPSULE PO SCH ×2 (10:16→17:38)
[2018-02-18] MEDS: LORATADINE 10 MG TABLET PO SCH (10:16)
[2018-02-18] MEDS: AMLODIPINE BESYLATE 10 MG TABLET PO SCH (10:16)
[2018-02-18] MEDS: RIVASTIGMINE 9.5 MG/24 HR PATCH.TD24 TD SCH (13:01)
[2018-02-18] MEDS: TRAMADOL HCL 50 MG TABLET PO PRN (14:13)
[2018-02-18] MEDS: VANCOMYCIN HCL 750 MG in DEXTROSE 5%-WATER 250 ML IV SCH (17:37)
[2018-02-18] MEDS: LISINOPRIL 10 MG TABLET PO SCH (17:39)
[2018-02-18] MEDS: ATORVASTATIN CALCIUM 20 MG TABLET PO SCH (17:39)
--- NOTE | 2018-02-18 19:03 | PDOC PROGRESS REPORT ---
Subjective Progress Note for:: 02/18/18 Subjective:: CYN WARNER is a 87 year old female patient with past medical history of seizure disorder, hypertension, hypothyroidism, diastolic heart failure and dementia brought from [facility] for altered mental status and tiredness. Admitted to [facility] on 02/14/2018 for ARF, HYPERnatremia, dehydration and UTI. The patient was seen on rounds; unfortunately there are no family members present at this time. The patient is sleeping but wakes easily when I say her name. She is able to say her name but is not oriented to place, year, or situation. She tells me that she is hungry but denies all other complaints. She denies fever, chills, chest pain, palpitations, dyspnea, generalized pain. Per nursing, patient has been refusing multiple medications and declining to eat today. Per patient's daughter yesterday, this is a frequent occurrence for her mother. Reason For Visit: ALTERED MENTAL STATUS, COMPLICATED UTI Physical Exam Vital Signs: Temp Pulse Resp BP Pulse Ox 98.4 F 70 15 126/59 H 98 02/18/18 16:00 02/18/18 16:00 02/18/18 16:00 02/18/18 16:00 02/18/18 16:00 Pulse Oximeter Continuous Start: 02/16/18 09: 19 Freq: RTQ4 Status: Active Document 02/18/18 11:59 [facility] (Rec: 02/18/18 11:59 [facility] [email or web address]) Pulse Oximetry Assessment Oxygen Saturation (92-100) 92 Oxygen Delivery Method Room Air Fraction of Inspired Oxygen (FIO2) 21 Equipment Usage Equipment in Use Continuous SpO2 Machine # N-9 Intake & Output 02/17/18 02/18/18 02/19/18 06:59 06:59 06:59 Intake Total 4068 1702 1870 Balance 2518 1702 1870 Weight 62.6 kg 63.6 kg General appearance: PRESENT: no acute distress, well-developed, well-nourished, other - Overweight Head exam: PRESENT: atraumatic, normocephalic Eye exam: PRESENT: conjunctival injection - Chronic left eye conjunctivitis, conjunctiva pink, EOMI, PERRLA. ABSENT: scleral icterus Mouth exam: PRESENT: moist, tongue midline Neck exam: ABSENT: carotid bruit, JVD, lymphadenopathy, thyromegaly Respiratory exam: PRESENT: clear to auscultation trupti, symmetrical, unlabored. ABSENT: rales, rhonchi, wheezes Cardiovascular exam: PRESENT: RRR, +S1, +S2. ABSENT: diastolic murmur, rubs, systolic murmur Pulses: PRESENT: normal dorsalis pedis pul Vascular exam: PRESENT: normal capillary refill GI/Abdominal exam: PRESENT: normal bowel sounds, soft. ABSENT: distended, guarding, mass, organolmegaly, rebound, tenderness Rectal exam: PRESENT: deferred Extremities exam: PRESENT: full ROM. ABSENT: calf tenderness, clubbing, pedal edema Neurological exam: PRESENT: alert, awake, oriented to person, CN II-XII grossly intact, other - At patient's baseline. ABSENT: oriented to place, oriented to time, oriented to situation, motor sensory deficit Psychiatric exam: PRESENT: appropriate affect, normal mood. ABSENT: homicidal ideation, suicidal ideation Skin exam: PRESENT: dry, intact, warm. ABSENT: cyanosis, rash Results Laboratory Results: 02/18/18 06:33 02/18/18 06:33 02/18/18 02/18/18 06:33 06:33 WBC 13.7 H RBC 3.71 L Hgb 11.0 L Hct 32.5 L MCV 88 MCH 29.5 MCHC 33.7 RDW 15.6 H Plt Count 74 L Sodium 140.8 Potassium 3.1 L Chloride 108 H Carbon Dioxide 23 Anion Gap 10 BUN 15 Creatinine 0.85 Est GFR ( Amer) > 60 Est GFR (Non-Af Amer) > 60 Glucose 131 H Calcium 8.6 Impressions: Chest X-Ray 02/14/18 17:35 IMPRESSION: Mild subsegmental atelectasis in the left lung base. Assessment & Plan - Diagnosis (1) CUONG (acute kidney injury) Is this a current diagnosis for this admission?: Yes Plan: Resolved; secondary to dehydration related to poor p.o. intake and infection. This is evidenced by hypernatremia, elevated BUN and creatinine above baseline. Creatinine has trended down from 2.99--> 0.85. BUN 90--> 15. Sodium nml. Continue gentle maintenance IV fluids. Avoid nephrotoxic medications as able; pharmacy to dose vancomycin. Monitor daily chemistries. (2) Complicated UTI (urinary tract infection) Is this a current diagnosis for this admission?: Yes Plan: Likely secondary to urinary incontinence and poor perineal hygiene. Patient's family reports frequent history of the same. Urinalysis indicative of UTI. Urine culture reveals E. coli. We will transition to IV Ancef based on sensitivity results. Continue gentle IV fluid hydration. (3) Encephalopathy Is this a current diagnosis for this admission?: Yes Plan: Acute metabolic encephalopathy, complicated by baseline advanced dementia; resulting in decreased mental status from baseline secondary to dehydration, urinary tract infection, and bacteremia. Patient appears to have returned to baseline; oriented to self only. Continue plan as above. Supportive care. Provide for safety. (4) Bacteremia Is this a current diagnosis for this admission?: Yes Plan: First set of blood cultures are positive for MRSA and Staph epidermidis with multiple resistances. Possible contaminants from skin ligia as urinalysis shows E. coli and there are no other apparent sources of infection. However, given patient's decreased mental status and multiple admissions for MRSA, will treat with IV antibiotics. Patient has remained afebrile since admission and leukocytes are trending down. Repeat blood cultures have no growth at 72 hours. Continue IV vancomycin; will require a total of 2 weeks of antibiotics secondary to staph aureus bacteremia. End date March 03. Second blood cultures are negative at 72 hours; consider PICC placement. (5) Seizure disorder Is this a current diagnosis for this admission?: Yes Plan: History of seizures per group home records. Subtherapeutic Depakote level (34). Depakote is increased from 500 twice daily to 750 mg twice daily. We will need to recheck Depakote levels and 72 hours (02/20/18). Seizure precautions. (6) Dementia Qualifiers: Dementia type: Alzheimer's disease Alzheimer's disease onset: unspecified onset Dementia behavioral disturbance: without behavioral disturbance Qualified Code(s): G30.9 - Alzheimer's disease, unspecified Is this a current diagnosis for this admission?: Yes Plan: Patient with advanced dementia; per group home records and patient's daughter , the patient is normally alert and oriented to self only. The daughter reports that she is conversational but "does not make a bit of sense," requires assistance with meals, and is able to self propel in wheelchair. The patient's daughter does indicate desire that her mother be made a DNR but declines to discuss pallative care/hospice services at this time. Continue Exelon patch. Supportive care. - Time Time Spent with patient: 15-24 minutes Anticipated discharge: SNF - assisted resident at [facility]: Other - We will discuss with discharge planning whether or not IV antibiotics for bacteremia is can be continued at [facility].
[2018-02-18] MEDS: POTASSI CL 20 MEQ/50 ML RIDER 20 MEQ/50 ML RTUPB IV SCH (22:04)
[2018-02-18] MEDS: BACITRACIN OPH OINT 3.5 GM OS SCH (22:06)
[2018-02-19] MEDS: POTASSI CL 20 MEQ/50 ML RIDER 20 MEQ/50 ML RTUPB IV SCH ×2 (01:03→04:23)
[2018-02-19] MEDS: POTASSI CL 20 MEQ/D5-1/2NS 1L 1,000 ML IV PRN (04:25)
[2018-02-19] MEDS: LANSOPRAZOLE 30 MG TAB.RAP.DR PO SCH (05:57)
[2018-02-19] MEDS: METOPROLOL TARTRATE 25 MG TABLET PO SCH ×2 (05:58→17:22)
[2018-02-19] MEDS: LEVOTHYROXINE SODIUM 0.1 MG TABLET PO SCH (05:58)
[2018-02-19 08:29] LABS: ANION GAP 9 (5-19); BLOOD UREA NITROGEN 12 mg/dL (7-20); CALCIUM 8.9 mg/dL (8.4-10.2); CARBON DIOXIDE 22 mmol/L (22-30); CHLORIDE 109 mmol/L (98-107); GLUCOSE 106 mg/dL (75-110); POTASSIUM 4.4 mmol/L (3.6-5.0); SODIUM 140.1 mmol/L (137-145)
[2018-02-19] MEDS: BUSPIRONE HCL 10 MG TABLET PO SCH ×2 (10:24→17:22)
[2018-02-19] MEDS: DOCUSATE SODIUM 100 MG CAPSULE PO SCH ×2 (10:24→17:25)
[2018-02-19] MEDS: SERTRALINE HCL 50 MG TABLET PO SCH (10:25)
[2018-02-19] MEDS: LORATADINE 10 MG TABLET PO SCH (10:25)
[2018-02-19] MEDS: AMLODIPINE BESYLATE 10 MG TABLET PO SCH (10:25)
[2018-02-19] MEDS: FUROSEMIDE 40 MG TABLET PO SCH (10:26)
[2018-02-19] MEDS: BACITRACIN OPH OINT 3.5 GM OS SCH ×4 (10:26→21:52)
[2018-02-19] MEDS: CEFAZOLIN 1 GM/D5W RTU 1 GM/50 ML RTUPB IV SCH ×2 (10:26→21:52)
[2018-02-19] MEDS: RIVASTIGMINE 9.5 MG/24 HR PATCH.TD24 TD SCH (10:27)
[2018-02-19] MEDS: DIVALPROEX SODIUM 250 MG TAB.SR.24H PO SCH ×2 (10:28→17:22)
[2018-02-19] MEDS: TRAMADOL HCL 50 MG TABLET PO PRN ×2 (11:50→21:52)
[2018-02-19 11:59] LABS: HEMATOCRIT 33.8 % (36.0-47.0); HEMOGLOBIN 11.2 g/dL (12.0-15.5); MEAN CORPUSCULAR HEMOGLOBIN 29.1 pg (27.0-33.4); MEAN CORPUSCULAR HGB CONC 33.1 g/dL (32.0-36.0); MEAN CORPUSCULAR VOLUME 88 fl (80-97); RED BLOOD COUNT 3.85 10^6/uL (3.72-5.28); RED CELL DISTRIBUTION WIDTH 15.7 % (11.5-14.0); WHITE BLOOD COUNT 16.2 10^3/uL (4.0-10.5)
[2018-02-19 12:33] LABS: PLATELET COUNT 60 10^3/uL (150-450)
[2018-02-19 14:29] LABS: APPEARANCE,URINE CLEAR; BILIRUBIN,URINE NEGATIVE (NEGATIVE); COLOR,URINE STRAW; GLUCOSE, URINE NEGATIVE (NEGATIVE); KETONES,URINE NEGATIVE (NEGATIVE); LEUKOCYTE ESTERASE,URINE SMALL (NEGATIVE); NITRITE,URINE NEGATIVE (NEGATIVE); PROTEIN,URINE NEGATIVE (NEGATIVE); URINE SPECIFIC GRAVITY 1.006; UROBILINOGEN,URINE NEGATIVE mg/dL (<2.0)
--- NOTE | 2018-02-19 15:23 | RADIOLOGY REPORT (SQ) ---
EXAM DESCRIPTION: CHEST SINGLE VIEW COMPLETED DATE/TIME: 02/19/2018 3:12 pm REASON FOR STUDY: fatigue; leukocytosis, ? PNA COMPARISON: None. EXAM PARAMETERS: NUMBER OF VIEWS: One view. TECHNIQUE: Single frontal radiographic view of the chest acquired. RADIATION DOSE: NA LIMITATIONS: None. FINDINGS: LUNGS AND PLEURA: No opacities, masses or pneumothorax. No pleural effusion. MEDIASTINUM AND HILAR STRUCTURES: No masses. Contour normal. HEART AND VASCULAR STRUCTURES: Heart normal in size. Normal vasculature. BONES: No acute findings. HARDWARE: A PICC line on the right has its tip in the superior vena cava. OTHER: No other significant finding. IMPRESSION: PICC line placement. No significant cardiopulmonary disease. TECHNICAL DOCUMENTATION: JOB ID: [id number] [employer]- All Rights Reserved Reading location - IP/workstation name: [email or web address]
[2018-02-19] MEDS ORDERED: NORMAL SALINE 10 ML SDV (AFTER EACH USE) IV PRN (15:31)
--- NOTE | 2018-02-19 15:54 | RADIOLOGY REPORT (SQ) ---
EXAM DESCRIPTION: PICC INSERTION; FLUORO/CV PLACEMENT; U/S GUIDE FOR VASCULAR ACCESS COMPLETED DATE/TIME: 02/19/2018 3:12 pm REASON FOR STUDY: nursing home antibiotics; ABX COMPARISON: Two-view chest 12/11/2016 FLUOROSCOPY TIME: 18 seconds 1 ultrasound and 1 digital fluoroscopic chest images saved to PACS. TECHNIQUE: Fluoroscopic and ultrasound guided PICC placement. LIMITATIONS: None. PROCEDURE: After written consent and assessment were obtained, the patient was brought into the fluo roscopy room and place supine on the table. Ultrasound evaluation of potential access sites were perf ormed. After successfully identifying a patent right basilic vein, the right arm was prepped and drap ed in a sterile fashion along with the ultrasound probe. The entry site was anesthetized with 1% lido emery. A 21 gauge 7 cm needle was advanced through the skin and into the basilic vein under live ultr asound guidance. An ultrasound image was saved to PACS confirming access site. A .018 guide wire wa s then inserted through the needle and into the venous system. The needle was the removed and an 11 b lade scalpel was used to make a 1cm skin incision. A 5 fr peel-away sheath was advanced over the wir e and into the venous system. A measurement was then made using the existing wire and live fluoroscop ic guidance. The wire was then removed and the trimmed. The PICC was advanced through the peel-away s renuka and into the venous system. The peel-away sheath was removed and the catheter was adhered to th e patients arm with a stat lock. The catheter was then aspirated and flushed and a sterile bandage wa s placed over the access site. A fluoroscopic spot image was saved to PACS confirming the catheter t ip within the superior vena cava. IMPRESSION: SUCCESSFUL PLACEMENT OF A 5 FR DUAL LUMEN 35 CM PICC IN THE RIGHT BASILIC VEIN. COMMENT: Patient medication list reviewed: Yes- Quality ID# [id number]:Eligible professional attests to doc umenting in the medical record they obtained, updated, or reviewed the patient's current medications. . Quality ID 145: Final reports for procedures using fluoroscopy that document radiation exposure margie mukesh, or exposure time and number of fluorographic images (if radiation exposure indices are not avail able) Quality ID #76: The patient was prepped and draped using maximum sterile barrier technique including cap, mask, sterile gown, sterile gloves, a large sterile sheet, hand hygiene, and 2% Chlorhexidine fo r cutaneous antisepsis. When ultrasound is used, sterile ultrasound techniques are followed requiring sterile gel and sterile probes. TECHNICAL DOCUMENTATION: JOB ID: [id number] [employer]- All Rights Reserved rev-01/17 Reading location - IP/workstation name: [email or web address] [id number]
[2018-02-19] MEDS: ATORVASTATIN CALCIUM 20 MG TABLET PO SCH (17:22)
[2018-02-19] MEDS: VANCOMYCIN HCL 750 MG in DEXTROSE 5%-WATER 250 ML IV SCH (17:22)
[2018-02-19] MEDS: LISINOPRIL 10 MG TABLET PO SCH (17:25)
--- NOTE | 2018-02-19 18:49 | PDOC PROGRESS REPORT ---
Subjective Progress Note for:: 02/19/18 Subjective:: CYN WARNER is a 87 year old female patient with past medical history of seizure disorder, hypertension, hypothyroidism, diastolic heart failure and dementia brought from [facility] for altered mental status and tiredness. [facility] for ARF, HYPERnatremia, dehydration and UTI. The patient was seen on rounds with the patient's daughter present. The patient 's daughter states that she appears to be approaching her baseline; more alert and conversational, though disoriented per her usual. The patient is a awake and able to answer a few yes or no questions; denying cough, shortness of breath , and pain. Per nursing, continues to have poor oral intake. Per the patient's daughter, this appears to be normal for her. Plan for PICC line placement today. Will monitor CBC and if WBCs trend downwards, may arrange for discharge to SNF for completion of antibiotic course. Reason For Visit: ALTERED MENTAL STATUS, COMPLICATED UTI Physical Exam Vital Signs: Temp Pulse Resp BP Pulse Ox 98.3 F 74 15 103/49 L 90 L 02/19/18 16:00 02/19/18 16:00 02/19/18 16:00 02/19/18 16:00 02/19/18 16:25 Pulse Oximeter Continuous Start: 02/16/18 09: 19 Freq: RTQ4 Status: Active Document 02/19/18 16:25 [facility] (Rec: 02/19/18 16:34 [id number] [email or web address]) Pulse Oximetry Assessment Oxygen Saturation (92-100) 90 Oxygen Delivery Method Room Air Fraction of Inspired Oxygen (FIO2) 21 Equipment Usage Equipment in Use Continuous SpO2 Machine # [id number] Intake & Output 02/18/18 02/19/18 02/20/18 06:59 06:59 06:59 Intake Total 1702 2925 720 Balance 1702 2925 720 Weight 63.6 kg 65.2 kg General appearance: PRESENT: no acute distress, well-developed, well-nourished, other - Overweight Head exam: PRESENT: atraumatic, normocephalic Eye exam: PRESENT: conjunctiva pink, EOMI, PERRLA. ABSENT: scleral icterus Mouth exam: PRESENT: moist, tongue midline Neck exam: ABSENT: carotid bruit, JVD, lymphadenopathy, thyromegaly Respiratory exam: PRESENT: clear to auscultation trupti, symmetrical, unlabored. ABSENT: rales, rhonchi, wheezes Cardiovascular exam: PRESENT: RRR. ABSENT: diastolic murmur, rubs, systolic murmur Pulses: PRESENT: normal dorsalis pedis pul Vascular exam: PRESENT: normal capillary refill GI/Abdominal exam: PRESENT: normal bowel sounds, soft. ABSENT: distended, guarding, mass, organolmegaly, rebound, tenderness Rectal exam: PRESENT: deferred Extremities exam: PRESENT: full ROM. ABSENT: calf tenderness, clubbing, pedal edema Neurological exam: PRESENT: alert, awake, oriented to person, CN II-XII grossly intact, other - Pleasantly confused. ABSENT: oriented to place, oriented to time, oriented to situation, motor sensory deficit Psychiatric exam: PRESENT: appropriate affect, normal mood. ABSENT: homicidal ideation, suicidal ideation Skin exam: PRESENT: dry, intact, warm. ABSENT: cyanosis, rash Results Laboratory Results: 02/19/18 09:35 02/19/18 07:44 02/19/18 02/19/18 02/19/18 07:44 07:44 09:35 WBC Cancelled 16.2 H RBC Cancelled 3.85 Hgb Cancelled 11.2 L Hct Cancelled 33.8 L MCV Cancelled 88 MCH Cancelled 29.1 MCHC Cancelled 33.1 RDW Cancelled 15.7 H Plt Count Cancelled 60 L Sodium 140.1 Potassium 4.4 Chloride 109 H Carbon Dioxide 22 Anion Gap 9 BUN 12 Creatinine 0.79 Est GFR ( Amer) > 60 Est GFR (Non-Af Amer) > 60 Glucose 106 Calcium 8.9 Urine Color Urine Appearance Urine pH Ur Specific [place] Urine Protein Urine Glucose (UA) Urine Ketones Urine Blood Urine Nitrite Ur Leukocyte Esterase Urine WBC (Auto) Urine RBC (Auto) 02/19/18 14:00 WBC RBC Hgb Hct MCV MCH MCHC RDW Plt Count Sodium Potassium Chloride Carbon Dioxide Anion Gap BUN Creatinine Est GFR ( Amer) Est GFR (Non-Af Amer) Glucose Calcium Urine Color STRAW Urine Appearance CLEAR Urine pH 5.0 Ur Specific [place] 1.006 Urine Protein NEGATIVE Urine Glucose (UA) NEGATIVE Urine Ketones NEGATIVE Urine Blood MODERATE H Urine Nitrite NEGATIVE Ur Leukocyte Esterase SMALL H Urine WBC (Auto) 13 Urine RBC (Auto) 4 Impressions: Chest X-Ray 02/19/18 00:00 IMPRESSION: PICC line placement. No significant cardiopulmonary disease. Guidance Fluoroscopy 02/19/18 00:00 IMPRESSION: SUCCESSFUL PLACEMENT OF A 5 FR DUAL LUMEN 35 CM PICC IN THE RIGHT BASILIC VEIN. Interventional Vascular Procedure 02/19/18 00:00 IMPRESSION: SUCCESSFUL PLACEMENT OF A 5 FR DUAL LUMEN 35 CM PICC IN THE RIGHT BASILIC VEIN. PICC Line Insertion 02/19/18 00:00 IMPRESSION: SUCCESSFUL PLACEMENT OF A 5 FR DUAL LUMEN 35 CM PICC IN THE RIGHT BASILIC VEIN. Assessment & Plan - Diagnosis (1) CUONG (acute kidney injury) Is this a current diagnosis for this admission?: Yes Plan: Resolved; secondary to dehydration related to poor p.o. intake and infection. This is evidenced by hypernatremia, elevated BUN and creatinine above baseline. Creatinine has trended down from 2.99--> 0.85. BUN 90--> 15. Sodium nml. Continue gentle maintenance IV fluids. Avoid nephrotoxic medications as able; pharmacy to dose vancomycin. Monitor daily chemistries. (2) Complicated UTI (urinary tract infection) Is this a current diagnosis for this admission?: Yes Plan: Likely secondary to urinary incontinence and poor perineal hygiene. Patient's family reports frequent history of the same. Urinalysis indicative of UTI. Repeat urinalysis much improved; moderate blood, small leukoesterase. Urine culture reveals E. coli. We will transition to IV Ancef based on sensitivity results. Continue gentle IV fluid hydration. (3) Encephalopathy Is this a current diagnosis for this admission?: Yes Plan: Resolved; per family the patient is now at her baseline. Acute metabolic encephalopathy, complicated by baseline advanced dementia; resulting in decreased mental status from baseline secondary to dehydration, urinary tract infection, and bacteremia. Continue plan as above. Supportive care. Provide for safety. (4) Bacteremia Is this a current diagnosis for this admission?: Yes Plan: First set of blood cultures are positive for MRSA and Staph epidermidis with multiple resistances. Possible contaminants from skin ligia as urinalysis shows E. coli and there are no other apparent sources of infection. However, given patient's decreased mental status and multiple admissions for MRSA, will treat with IV antibiotics. Patient remains afebrile, however, slight increase in leukocytes today. Repeat blood cultures have no growth at 4 days Continue IV vancomycin; will require a total of 2 weeks of antibiotics secondary to staph aureus bacteremia. End date March 03. PICC line placed today. (5) Seizure disorder Is this a current diagnosis for this admission?: Yes Plan: History of seizures per assisted records. Subtherapeutic Depakote level (34). Depakote is increased from 500 twice daily to 750 mg twice daily. We will recheck Depakote level with a.m. labs. Seizure precautions. (6) Dementia Qualifiers: Dementia type: Alzheimer's disease Alzheimer's disease onset: unspecified onset Dementia behavioral disturbance: without behavioral disturbance Qualified Code(s): G30.9 - Alzheimer's disease, unspecified Is this a current diagnosis for this admission?: Yes Plan: Patient with advanced dementia; per assisted records and patient's daughter , the patient is normally alert and oriented to self only. The daughter reports that she is conversational but "does not make a bit of sense," requires assistance with meals, and is able to self propel in wheelchair. The patient's daughter does indicate desire that her mother be made a DNR but declines to discuss pallative care/hospice services at this time. Continue Exelon patch. Supportive care. (7) Leukocytosis Is this a current diagnosis for this admission?: Yes Plan: Secondary to urinary tract infection and bacteremia. Blood and urine cultures as above. WBCs are up today is 16.2. Chest x-ray is clear; no acute cardiopulmonary findings. Lung marsh are clear to auscultation, no cough. Repeat urinalysis is much improved; moderate blood, small leukoesterase, no nitrates, WBCs or bacteria. Skin is intact. Patient has remained afebrile throughout admission. There is no clear source for increased WBCs at this time; likely reactive. We will continue to trend. If WBC stabilizer decrease, may pursue discharge to SNF for completion of antibiotic therapy. - Time Time Spent with patient: 25-34 minutes Medications reviewed and adjusted accordingly: Yes Anticipated discharge: SNF Within: within 24 hours
[2018-02-19] MEDS: NORMAL SALINE 10 ML SDV (SCHEDULED) IV SCH (21:52)
[2018-02-20] MEDS: POTASSI CL 20 MEQ/D5-1/2NS 1L 1,000 ML IV PRN (02:43)
[2018-02-20 04:32] LABS: HEMATOCRIT 29.9 % (36.0-47.0); MEAN CORPUSCULAR HEMOGLOBIN 29.4 pg (27.0-33.4); MEAN CORPUSCULAR HGB CONC 33.5 g/dL (32.0-36.0); MEAN CORPUSCULAR VOLUME 88 fl (80-97); RED CELL DISTRIBUTION WIDTH 15.5 % (11.5-14.0); WHITE BLOOD COUNT 15.1 10^3/uL (4.0-10.5)
[2018-02-20 04:53] LABS: PLATELET COUNT 58 10^3/uL (150-450)
[2018-02-20] MEDS: METOPROLOL TARTRATE 25 MG TABLET PO SCH ×2 (06:20→17:49)
[2018-02-20] MEDS: LEVOTHYROXINE SODIUM 0.1 MG TABLET PO SCH (06:20)
[2018-02-20] MEDS: LANSOPRAZOLE 30 MG TAB.RAP.DR PO SCH (06:21)
[2018-02-20] MEDS: SERTRALINE HCL 50 MG TABLET PO SCH (08:23)
[2018-02-20] MEDS: AMLODIPINE BESYLATE 10 MG TABLET PO SCH (08:23)
[2018-02-20] MEDS: LORATADINE 10 MG TABLET PO SCH (08:23)
[2018-02-20] MEDS: FUROSEMIDE 40 MG TABLET PO SCH (08:26)
[2018-02-20] MEDS: DOCUSATE SODIUM 100 MG CAPSULE PO SCH ×2 (10:46→17:48)
[2018-02-20] MEDS: BUSPIRONE HCL 10 MG TABLET PO SCH ×2 (10:46→17:48)
[2018-02-20] MEDS: DIVALPROEX SODIUM 250 MG TAB.SR.24H PO SCH ×2 (10:46→17:50)
[2018-02-20] MEDS: RIVASTIGMINE 9.5 MG/24 HR PATCH.TD24 TD SCH (10:47)
[2018-02-20] MEDS: NORMAL SALINE 10 ML SDV (SCHEDULED) IV SCH ×2 (10:47→22:00)
[2018-02-20] MEDS: CEFAZOLIN 1 GM/D5W RTU 1 GM/50 ML RTUPB IV SCH (12:24)
[2018-02-20] MEDS: BACITRACIN OPH OINT 3.5 GM OS SCH ×4 (12:25→22:00)
--- NOTE | 2018-02-20 17:30 | PDOC PROGRESS REPORT ---
Subjective Progress Note for:: 02/20/18 Subjective:: CYN WARNER is a 87 year old female patient with past medical history of seizure disorder, hypertension, hypothyroidism, diastolic heart failure and dementia brought from [facility] for altered mental status and tiredness. Admitted to [facility] on 02/14/2018 for ARF, HYPERnatremia, dehydration and UTI. The patient was seen on rounds, no family members are present at this time. Initially the patient is found sleeping, but she wakes easily when I enter the room and say her name. Unfortunately, I startled her and she began crying. She comes down with reassurance, but then answers all questions with " you scared me." Nursing's only concern today is appropriateness for palliative care/hospice referral. The patient is clinically improving, but I am in agreement given the patient's advanced dementia. Reason For Visit: ALTERED MENTAL STATUS, COMPLICATED UTI Physical Exam Vital Signs: Temp Pulse Resp BP Pulse Ox 97.4 F 57 L 16 102/39 L 96 02/20/18 12:33 02/20/18 12:33 02/20/18 12:33 02/20/18 12:33 02/20/18 12:30 Pulse Oximeter Continuous Start: 02/16/18 09: 19 Freq: RTQ4 Status: Active Document 02/20/18 12:00 [facility] (Rec: 02/20/18 12:04 [facility] [email or web address]) Pulse Oximetry Assessment Oxygen Saturation (92-100) 95 Oxygen Delivery Method Room Air Equipment Usage Equipment in Use Continuous SpO2 Machine # 9 Intake & Output 02/19/18 02/20/18 02/21/18 06:59 06:59 06:59 Intake Total 8625 3470 Balance 2925 3470 Weight 65.2 kg 63.5 kg General appearance: PRESENT: no acute distress, hard of hearing, well-developed , well-nourished, other - Overweight Head exam: PRESENT: atraumatic, normocephalic Eye exam: PRESENT: conjunctival injection - Chronic conjunctivitis left eye, conjunctiva pink, EOMI, PERRLA. ABSENT: scleral icterus Ear exam: PRESENT: normal external ear exam Mouth exam: PRESENT: moist, tongue midline Neck exam: ABSENT: carotid bruit, JVD, lymphadenopathy, thyromegaly Respiratory exam: PRESENT: clear to auscultation trupti, decreased breath sounds - Secondary to poor inspiratory effort; patient unable to follow directions, symmetrical, unlabored, other - Room air. ABSENT: rales, rhonchi, wheezes Cardiovascular exam: PRESENT: RRR, +S1, +S2. ABSENT: diastolic murmur, rubs, systolic murmur Pulses: PRESENT: normal dorsalis pedis pul Vascular exam: PRESENT: normal capillary refill GI/Abdominal exam: PRESENT: normal bowel sounds, soft. ABSENT: distended, guarding, mass, organolmegaly, rebound, tenderness Rectal exam: PRESENT: deferred Extremities exam: PRESENT: full ROM. ABSENT: calf tenderness, clubbing, pedal edema Neurological exam: PRESENT: alert, awake, oriented to person, CN II-XII grossly intact, other - Confused; per family report, this is likely patient's baseline mental status.. ABSENT: oriented to place, oriented to time, oriented to situation, motor sensory deficit Psychiatric exam: PRESENT: normal mood, other - Tearful. ABSENT: homicidal ideation, suicidal ideation Skin exam: PRESENT: dry, intact, warm. ABSENT: cyanosis, rash Results Laboratory Results: 02/20/18 04:00 02/19/18 07:44 02/20/18 04:00 WBC 15.1 H RBC 3.40 L Hgb 10.0 L Hct 29.9 L MCV 88 MCH 29.4 MCHC 33.5 RDW 15.5 H Plt Count 58 L Impressions: Chest X-Ray 02/19/18 00:00 IMPRESSION: PICC line placement. No significant cardiopulmonary disease. Guidance Fluoroscopy 02/19/18 00:00 IMPRESSION: SUCCESSFUL PLACEMENT OF A 5 FR DUAL LUMEN 35 CM PICC IN THE RIGHT BASILIC VEIN. Interventional Vascular Procedure 02/19/18 00:00 IMPRESSION: SUCCESSFUL PLACEMENT OF A 5 FR DUAL LUMEN 35 CM PICC IN THE RIGHT BASILIC VEIN. PICC Line Insertion 02/19/18 00:00 IMPRESSION: SUCCESSFUL PLACEMENT OF A 5 FR DUAL LUMEN 35 CM PICC IN THE RIGHT BASILIC VEIN. Assessment & Plan - Diagnosis (1) CUONG (acute kidney injury) Is this a current diagnosis for this admission?: Yes Plan: Resolved; secondary to dehydration related to poor p.o. intake and infection. This is evidenced by hypernatremia, elevated BUN and creatinine above baseline. Creatinine has trended down from 2.99--> 0.79. BUN 90--> 12. Sodium nml. Continue gentle maintenance IV fluids. Avoid nephrotoxic medications as able; pharmacy to dose vancomycin. (2) Complicated UTI (urinary tract infection) Is this a current diagnosis for this admission?: Yes Plan: Likely secondary to urinary incontinence and poor perineal hygiene. Patient's family reports frequent history of the same. Urinalysis indicative of UTI. Repeat urinalysis much improved; moderate blood, small leukoesterase. Urine culture reveals E. coli. The patient received 2 days of Rocephin followed by cefepime 2 days. Transition to Ancef based on culture sensitivity; a #3. This is a total of 7 days of class appropriate antibiotic treatment. Will discontinue cephalosporin antibiotic and monitor for recurrent UTI symptoms. Continue gentle IV fluid hydration. (3) Encephalopathy Is this a current diagnosis for this admission?: Yes Plan: Resolved; per family the patient is now at her baseline. Acute metabolic encephalopathy, complicated by baseline advanced dementia; resulting in decreased mental status from baseline secondary to dehydration, urinary tract infection, and bacteremia. Continue plan as above. Supportive care. Provide for safety. (4) Bacteremia Is this a current diagnosis for this admission?: Yes Plan: First set of blood cultures are positive for MRSA and Staph epidermidis with multiple resistances. Possible contaminants from skin ligia as urinalysis shows E. coli and there are no other apparent sources of infection. However, given patient's decreased mental status and multiple admissions for MRSA, treatment was initiated with vancomycin. Patient remains afebrile. Leukocytosis is trending down. Initial blood cultures: First set positive for MRSA and staph epidermidis, second set has no growth at 5 days. Repeat blood cultures are pending. Continue IV vancomycin; currently day #6. Unfortunately, the second set of initial blood cultures were misinterpreted as repeat blood cultures showing bacterial clearance. PICC line has already been placed. Repeat blood cultures are obtained today. Will monitor for growth; if negative , may consider the first set showing MRSA and staph epidermidis to be evidence of contaminant and will discontinue IV vancomycin. (5) Seizure disorder Is this a current diagnosis for this admission?: Yes Plan: History of seizures per correction records. Subtherapeutic Depakote level (34). Depakote is increased from 500 twice daily to 750 mg twice daily. We will recheck Depakote level with a.m. labs. Seizure precautions. (6) Dementia Qualifiers: Dementia type: Alzheimer's disease Alzheimer's disease onset: unspecified onset Dementia behavioral disturbance: without behavioral disturbance Qualified Code(s): G30.9 - Alzheimer's disease, unspecified Is this a current diagnosis for this admission?: Yes Plan: Patient with advanced dementia; per correction records and patient's daughter , the patient is normally alert and oriented to self only. The daughter reports that she is conversational but "does not make a bit of sense," requires assistance with meals, and is able to self propel in wheelchair. The patient's daughter does indicate desire that her mother be made a DNR but declines to discuss pallative care/hospice services at this time. Continue Exelon patch. Supportive care. (7) Leukocytosis Is this a current diagnosis for this admission?: Yes Plan: Secondary to urinary tract infection and bacteremia. Trending down 16.2--> 15.1 Blood and urine cultures as above. Chest x-ray is clear; no acute cardiopulmonary findings. Lung marsh are clear to auscultation, no cough. Repeat urinalysis is much improved; moderate blood, small leukoesterase, no nitrates, WBCs or bacteria. Skin is intact. Patient has remained afebrile throughout admission. We will continue to trend. - Time Time Spent with patient: Less than 15 minutes Medications reviewed and adjusted accordingly: Yes Anticipated discharge: SNF - correction resident Within: within 48 hours - Awaiting 2nd set of blood culture results
[2018-02-20] MEDS: VANCOMYCIN HCL 750 MG in DEXTROSE 5%-WATER 250 ML IV SCH (17:48)
[2018-02-20] MEDS: ATORVASTATIN CALCIUM 20 MG TABLET PO SCH (17:49)
[2018-02-20] MEDS: LISINOPRIL 10 MG TABLET PO SCH (17:52)
[2018-02-20 18:21] LABS: VANCOMYCIN,TROUGH 11.3 ug/mL (5.0-20.0)
[2018-02-21 05:00] LABS: HEMATOCRIT 29.3 % (36.0-47.0); HEMOGLOBIN 9.9 g/dL (12.0-15.5); MEAN CORPUSCULAR HEMOGLOBIN 29.4 pg (27.0-33.4); MEAN CORPUSCULAR HGB CONC 33.6 g/dL (32.0-36.0); MEAN CORPUSCULAR VOLUME 88 fl (80-97); RED BLOOD COUNT 3.35 10^6/uL (3.72-5.28); RED CELL DISTRIBUTION WIDTH 15.5 % (11.5-14.0); WHITE BLOOD COUNT 14.4 10^3/uL (4.0-10.5)
[2018-02-21] MEDS: LEVOTHYROXINE SODIUM 0.1 MG TABLET PO SCH (05:32)
[2018-02-21] MEDS: METOPROLOL TARTRATE 25 MG TABLET PO SCH ×2 (05:32→17:27)
[2018-02-21] MEDS: LANSOPRAZOLE 30 MG TAB.RAP.DR PO SCH (05:32)
[2018-02-21 05:39] LABS: PLATELET COUNT 71 10^3/uL (150-450)
[2018-02-21] MEDS: LORATADINE 10 MG TABLET PO SCH (07:58)
[2018-02-21] MEDS: SERTRALINE HCL 50 MG TABLET PO SCH (07:58)
[2018-02-21] MEDS: FUROSEMIDE 40 MG TABLET PO SCH (07:58)
[2018-02-21] MEDS: AMLODIPINE BESYLATE 10 MG TABLET PO SCH (07:58)
[2018-02-21] MEDS: DOCUSATE SODIUM 100 MG CAPSULE PO SCH ×2 (10:29→17:20)
[2018-02-21] MEDS: BACITRACIN OPH OINT 3.5 GM OS SCH ×4 (10:52→21:28)
[2018-02-21] MEDS: RIVASTIGMINE 9.5 MG/24 HR PATCH.TD24 TD SCH (10:52)
[2018-02-21] MEDS: DIVALPROEX SODIUM 250 MG TAB.SR.24H PO SCH ×2 (10:52→17:27)
[2018-02-21] MEDS: BUSPIRONE HCL 10 MG TABLET PO SCH ×2 (10:52→17:28)
[2018-02-21] MEDS: NORMAL SALINE 10 ML SDV (SCHEDULED) IV SCH ×2 (10:53→21:28)
[2018-02-21] MEDS ORDERED: RINGERS SOLUTION,LACTATED 1,000 ML IV PRN (15:55)
--- NOTE | 2018-02-21 17:24 | PDOC PROGRESS REPORT ---
Subjective Progress Note for:: 02/21/18 Subjective:: CYN WARNER is a 87 year old female patient with past medical history of seizure disorder, hypertension, hypothyroidism, diastolic heart failure and dementia brought from [facility] for altered mental status and tiredness. Admitted to [facility] on 02/14/2018 for ARF, HYPERnatremia, dehydration and UTI. The patient was seen on rounds, no family members are present at this time. Initially the patient is found sleeping, but she wakes easily when I enter the room and say her name. She opens her eyes briefly but does not make eye contact or talk today. After reviewing the patient's total p.o. intake, and concerned about the patient 's ability to maintain nutritional needs. She has had minimal food intake over the last 7 days and averages 200-500 mL's of oral fluids. The patient's guardian was contacted, [facility], and updated on the patient's current status. They were notified of the patient's advanced dementia , declined mental status, lack of p.o. intake, and recommendations for hospice placement. They were also provided information with regard to PEG tube feedings. The patient's briefcase sewer, Yamini Doshi, called back this afternoon to state that they had talked with the patient's family members and all were in agreement in pursuing hospice. Anticipate discharge back to [place] tomorrow with hospice services. Reason For Visit: ALTERED MENTAL STATUS, COMPLICATED UTI Physical Exam Vital Signs: Temp Pulse Resp BP Pulse Ox 98.2 F 66 12 132/66 H 95 02/21/18 15:11 02/21/18 15:11 02/21/18 15:11 02/21/18 15:11 02/21/18 12:00 Pulse Oximeter Continuous Start: 02/16/18 09: 19 Freq: RTQ4 Status: Active Document 02/21/18 12:00 [facility] (Rec: 02/21/18 12:58 [facility] [email or web address]) Pulse Oximetry Assessment Oxygen Saturation (92-100) 95 Oxygen Delivery Method Room Air Equipment Usage Equipment in Use Continuous SpO2 Machine # 9 Intake & Output 02/20/18 02/21/18 02/22/18 06:59 06:59 06:59 Intake Total 3470 1350 120 Balance 3470 1350 120 Weight 63.5 kg 62.1 kg General appearance: PRESENT: no acute distress, well-developed, well-nourished Head exam: PRESENT: atraumatic, normocephalic Eye exam: PRESENT: conjunctival injection - Chronic left eye, conjunctiva pink, PERRLA. ABSENT: scleral icterus Mouth exam: PRESENT: dry mucosa, tongue midline Neck exam: ABSENT: carotid bruit, JVD, lymphadenopathy, thyromegaly Respiratory exam: PRESENT: clear to auscultation trupti, symmetrical, unlabored. ABSENT: rales, rhonchi, wheezes Cardiovascular exam: PRESENT: RRR. ABSENT: diastolic murmur, rubs, systolic murmur Pulses: PRESENT: normal dorsalis pedis pul Vascular exam: PRESENT: normal capillary refill GI/Abdominal exam: PRESENT: normal bowel sounds, soft. ABSENT: distended, guarding, mass, organolmegaly, rebound, tenderness Rectal exam: PRESENT: deferred Extremities exam: ABSENT: calf tenderness, clubbing, pedal edema Neurological exam: PRESENT: other - Arousable; does not follow directions were make attempts to talk today. ABSENT: motor sensory deficit Psychiatric exam: ABSENT: homicidal ideation, suicidal ideation Skin exam: PRESENT: dry, intact, warm. ABSENT: cyanosis, rash Results Laboratory Results: 02/21/18 04:30 02/20/18 17:42 02/20/18 02/21/18 17:42 04:30 WBC 14.4 H RBC 3.35 L Hgb 9.9 L Hct 29.3 L MCV 88 MCH 29.4 MCHC 33.6 RDW 15.5 H Plt Count 71 L Creatinine 0.90 Est GFR ( Amer) > 60 Est GFR (Non-Af Amer) 59 L Impressions: Chest X-Ray 02/19/18 00:00 IMPRESSION: PICC line placement. No significant cardiopulmonary disease. Guidance Fluoroscopy 02/19/18 00:00 IMPRESSION: SUCCESSFUL PLACEMENT OF A 5 FR DUAL LUMEN 35 CM PICC IN THE RIGHT BASILIC VEIN. Interventional Vascular Procedure 02/19/18 00:00 IMPRESSION: SUCCESSFUL PLACEMENT OF A 5 FR DUAL LUMEN 35 CM PICC IN THE RIGHT BASILIC VEIN. PICC Line Insertion 02/19/18 00:00 IMPRESSION: SUCCESSFUL PLACEMENT OF A 5 FR DUAL LUMEN 35 CM PICC IN THE RIGHT BASILIC VEIN. Assessment & Plan - Diagnosis (1) CUONG (acute kidney injury) Is this a current diagnosis for this admission?: Yes Plan: Resolved; secondary to dehydration related to poor p.o. intake and infection. This is evidenced by hypernatremia, elevated BUN and creatinine above baseline. Creatinine has trended down from 2.99--> 0.79. BUN 90--> 12. Sodium nml. (2) Complicated UTI (urinary tract infection) Is this a current diagnosis for this admission?: Yes Plan: Likely secondary to urinary incontinence and poor perineal hygiene. Patient's family reports frequent history of the same. Urinalysis indicative of UTI. Repeat urinalysis much improved; moderate blood, small leukoesterase. Urine culture reveals E. coli. The patient received 2 days of Rocephin followed by cefepime 2 days. Then transitioned to Ancef based on culture sensitivity results for a total of 7 days of class appropriate antibiotic treatment. (3) Encephalopathy Is this a current diagnosis for this admission?: Yes Plan: Per family the patient is now at her baseline. Acute metabolic encephalopathy, complicated by baseline advanced dementia; resulting in decreased mental status from baseline secondary to dehydration, urinary tract infection, and bacteremia. Continue plan as above. Supportive care. Provide for safety. (4) Bacteremia Is this a current diagnosis for this admission?: Yes Plan: First set of blood cultures are positive for MRSA and Staph epidermidis with multiple resistances. Possible contaminants from skin ligia as urinalysis shows E. coli and there are no other apparent sources of infection. However, given patient's decreased mental status and multiple admissions for MRSA, treatment was initiated with vancomycin. Patient remains afebrile. Leukocytosis are trending down. Initial blood cultures: First set positive for MRSA and staph epidermidis, second set has no growth at 5 days. Repeat blood cultures are negative at 24 hours. Patient was treated with 7 days of IV vancomycin; now discontinued. (5) Seizure disorder Is this a current diagnosis for this admission?: Yes Plan: History of seizures per prison records. Repeat Depakote level 58.4. Continue Depakote 750 mg twice daily. Seizure precautions. (6) Dementia Qualifiers: Dementia type: Alzheimer's disease Alzheimer's disease onset: unspecified onset Dementia behavioral disturbance: without behavioral disturbance Qualified Code(s): G30.9 - Alzheimer's disease, unspecified Is this a current diagnosis for this admission?: Yes Plan: Patient with advanced dementia; per prison records and patient's daughter , the patient is normally alert and oriented to self only. The daughter reports that she is conversational but "does not make a bit of sense," requires assistance with meals, and is able to self propel in wheelchair. I contacted the patient's primary nurse at [place] who confirmed that over the last several months she has noted a decline in her oral intake and on her best days averages 25% of meals. Since being admitted, the patient is documented to have been eating bites only (indicating less than 10% of each meal) with frequent refusal of meds, food, and water. Oral fluid intake averages 200-500 mL's daily which certainly is not life-sustaining. A follow-up call was placed to the patient's senior court office assistant at [facility]; patient is in the custody of [facility]. They were updated on the patient's advanced dementia, admission progress, and concerns regarding poor p.o. intake. They were advised on the options of enteral feeding via PEG tube versus hospice care. The [facility] worker, Yamini Venegas, called back this afternoon to state that after review of the patient's case and speaking with the patient's family members, it has been decided that the patient should be admitted to hospice services. Continue Exelon patch. Supportive care. Discharge planning is notified of hospice referral. Anticipate that she may be discharged back to [place] tomorrow if hospice care can be arranged. (7) Leukocytosis Is this a current diagnosis for this admission?: Yes Plan: Secondary to urinary tract infection and bacteremia. Trending down 16.2--> 15.1 --> 14.4 Blood and urine cultures as above. Chest x-ray is clear; no acute cardiopulmonary findings. Lung marsh are clear to auscultation, no cough. Repeat urinalysis is much improved; moderate blood, small leukoesterase, no nitrates, WBCs or bacteria. Skin is intact. Patient has remained afebrile throughout admission. Now placed on hospice; we will no longer follow. - Time Time Spent with patient: 35 or more minutes - Approximately 40 minutes was spent with the patient; greater than 50% related to coordination of care. Medications reviewed and adjusted accordingly: Yes Anticipated discharge: SNF, Hospice Within: within 24 hours
[2018-02-21] MEDS: ATORVASTATIN CALCIUM 20 MG TABLET PO SCH (17:27)
[2018-02-21] MEDS: LISINOPRIL 10 MG TABLET PO SCH (17:27)
[2018-02-21] MEDS ORDERED: VANCOMYCIN HCL 1,000 MG in DEXTROSE 5%-WATER 250 ML IV SCH (18:00)
[2018-02-21] MEDS: DIPHENHYDRAMINE HCL 2% CREAM 30 GM TP PRN (21:27)
[2018-02-22] MEDS: LANSOPRAZOLE 30 MG TAB.RAP.DR PO SCH (05:39)
[2018-02-22] MEDS: LEVOTHYROXINE SODIUM 0.1 MG TABLET PO SCH (05:39)
[2018-02-22] MEDS: METOPROLOL TARTRATE 25 MG TABLET PO SCH (08:22)
[2018-02-22] MEDS: AMLODIPINE BESYLATE 10 MG TABLET PO SCH (08:22)
[2018-02-22] MEDS: SERTRALINE HCL 50 MG TABLET PO SCH (08:31)
[2018-02-22] MEDS: LORATADINE 10 MG TABLET PO SCH (08:31)
[2018-02-22] MEDS: FUROSEMIDE 40 MG TABLET PO SCH (08:32)
[2018-02-22] MEDS: DOCUSATE SODIUM 100 MG CAPSULE PO SCH (10:16)
[2018-02-22] MEDS: BACITRACIN OPH OINT 3.5 GM OS SCH ×2 (10:21→13:38)
[2018-02-22] MEDS: DIPHENHYDRAMINE HCL 2% CREAM 30 GM TP PRN (10:22)
[2018-02-22] MEDS: RIVASTIGMINE 9.5 MG/24 HR PATCH.TD24 TD SCH (10:22)
[2018-02-22] MEDS: NORMAL SALINE 10 ML SDV (SCHEDULED) IV SCH (10:30)
[2018-02-22] MEDS ORDERED: CLOBETASOL PROPIONATE 0.05% CREAM 15 GM TOP PRN (10:44)
[2018-02-22] MEDS: DIVALPROEX SODIUM 250 MG TAB.SR.24H PO SCH (10:50)
[2018-02-22] MEDS: BUSPIRONE HCL 10 MG TABLET PO SCH (10:50)
--- NOTE | 2018-02-22 11:13 | PDOC TRANSFER SUMMARY ---
General - Admit/Disc Date/PCP Admission Date/Primary Care Provider: 02/14/18 21:15 OLEG KAUFFMAN Discharge Date: 02/22/18 - Discharge Diagnosis (1) CUONG (acute kidney injury) Is this a current diagnosis for this admission?: Yes Summary: Secondary to dehydration and UTI. Patient was provided IV fluid resuscitation with resolution of CUONG. Creatinine and BUN have returned to baseline. IV fluids were discontinued and patient I&Os monitored closely; patient with oral fluid intake of 50ml to 720ml daily (average 100ml). Considering the patient's advanced dementia, poor oral intake, and strong likelihood of rapidly reoccurring CUONG, the patient's family members and [facility] correctional counselor/case manager were contacted to discuss recommendations for Hospice referral vs PEG placement. [facility] correctional counselor/case manager returned call late yesterday to report that the family and [facility] have decided on Hospice Services. At time of discharge, the patient is in stable condition, alert and disorientated to her baseline. Arrangements have been made for the patient to discharge back to [facility] (where the patient is a longterm resident) with Hospice care. (2) Complicated UTI (urinary tract infection) Is this a current diagnosis for this admission?: Yes Summary: Likely secondary to urinary incontinence and poor perineal hygiene. Patient's family reports frequent history of the same. Urinalysis indicative of UTI. Repeat urinalysis much improved; moderate blood, small leukoesterase. Urine culture reveals E. coli. The patient received 2 days of Rocephin followed by cefepime 2 days. Then transitioned to Ancef based on culture sensitivity results for a total of 7 days of class appropriate antibiotic treatment. (3) Encephalopathy Is this a current diagnosis for this admission?: Yes Summary: Per family the patient is now at her baseline. Acute metabolic encephalopathy, complicated by baseline advanced dementia; resulting in decreased mental status from baseline secondary to dehydration, urinary tract infection, and bacteremia. (4) Bacteremia Is this a current diagnosis for this admission?: Yes Summary: First set of blood cultures are positive for MRSA and Staph epidermidis with multiple resistances. Likely contaminants from skin ligia as urinalysis shows E. coli and there are no other apparent sources of infection. However, given patient's decreased mental status and multiple admissions for MRSA, treatment was initiated with vancomycin. Patient remained afebrile throughout admission. Leukocytosis are trending down. Initial blood cultures: First set positive for MRSA and staph epidermidis, second set has no growth at 5 days. Repeat blood cultures are negative at 48 hours. Patient was treated with 7 days of IV vancomycin; now discontinued. (5) Seizure disorder Is this a current diagnosis for this admission?: Yes Summary: History of seizures per jail records. Repeat Depakote level 58.4. Continue Depakote 750 mg twice daily. (6) Dementia Is this a current diagnosis for this admission?: Yes Summary: Patient with advanced dementia; per jail records and patient's daughter , the patient is normally alert and oriented to self only. The daughter reports that she is conversational but "does not make a bit of sense," requires assistance with meals, and is able to self propel in wheelchair. I contacted the patient's primary nurse at [facility] who confirmed that over the last several months she has noted a decline in her oral intake and on her best days averages 25% of meals. Since being admitted, the patient is documented to have been eating bites only (indicating less than 10% of each meal) with frequent refusal of meds, food, and water. Oral fluid intake averages 100-200 mL's daily which certainly is not life-sustaining. A follow-up call was placed to the patient's school laboratory technician at [facility]; patient is in the custody of [facility]. They were updated on the patient's advanced dementia, admission progress, and concerns regarding poor p.o. intake. They were advised on the options of enteral feeding via PEG tube versus hospice care. The [facility] worker, Yamini Venegas, called back this afternoon to state that after review of the patient's case and speaking with the patient's family members, it has been decided that the patient should be admitted to hospice services. Continue Exelon patch. Supportive care. Hospice services have been arranged. (7) Leukocytosis Is this a current diagnosis for this admission?: Yes Summary: Secondary to urinary tract infection and bacteremia. Trending down 16.2--> 15.1 --> 14.4 Blood and urine cultures as above. Chest x-ray is clear; no acute cardiopulmonary findings. Lung marsh are clear to auscultation, no cough. Repeat urinalysis is much improved; moderate blood, small leukoesterase, no nitrates, WBCs or bacteria. Skin is intact. Patient has remained afebrile throughout admission. Now placed on hospice; no longer following. - Additional Information Resuscitation Status: Do Not Resuscitate Prescriptions: Divalproex Sodium [Depakote ER 250 mg Tablet] 750 mg PO BID #60 tab.sr.24h Home Medications: Acetaminophen [Tylenol 325 mg Tablet] 650 mg PO TID MDD ALTERNATING WITH MOTRIN 02/14/18 Alprazolam [Xanax] 0.25 mg PO TIDP PRN 02/14/18 Amlodipine Besylate [Norvasc 10 mg Tablet] 10 mg PO QAM 02/14/18 Atorvastatin Calcium [Lipitor 20 mg Tablet] 20 mg PO QPM 02/14/18 Bacitracin [Bacitracin Oph Oint 3.5 gm] 1 applic OS QID 02/14/18 Buspirone HCl [Buspar 10 mg Tablet] 10 mg PO BID 02/14/18 Clobetasol Propionate [Temovate 0.05% Cream 15 gm] 1 applic TOP BIDP PRN Docusate Sodium [Colace 100 mg Capsule] 100 mg PO BID 02/14/18 Fluoride (Sodium) [Prevident 5000 Plus] 1 applic PO BID 02/14/18 Furosemide [Lasix 40 mg Tablet] 40 mg PO QAM 02/14/18 Ketoconazole [Nizoral 2% Shampoo 120 ml Bottle] 1 applic TOP ASDIR PRN 02/14/18 Levothyroxine Sodium [Synthroid] 100 mcg PO Q6AM 02/14/18 Loratadine [Claritin 10 mg Tablet] 10 mg PO QAM 02/14/18 Menthol/Zinc Oxide [Calmoseptine Ointment] 1 applic TOP DAILYP PRN 02/14/18 Metoprolol Tartrate [Lopressor 25 mg Tablet] 25 mg PO BID 02/14/18 Rivastigmine [Exelon 9.5 mg/24 Hr Transdermal Patch] 1 patch TD DAILY 02/14/18 Sertraline HCl [Zoloft] 100 mg PO QAM 02/14/18 Acetaminophen [Tylenol 325 mg Tablet] 650 mg PO Q4HP PRN tablet 02/22/18 Divalproex Sodium [Depakote ER 250 mg Tablet] 750 mg PO BID #60 tab.sr.24h 02/22 Heparin Sodium,Porcine [Heparin Flush 10 Unit/ml 5 ml Disp.syrg] 30 unit IV .AFTER EACH USE PRN disp.syrin 02/22/18 Heparin Sodium,Porcine [Heparin Flush 10 Unit/ml 5 ml Disp.syrg] 30 unit IV Q12 disp.syrin 02/22/18 History of Present Illness Admission Date/PCP: 02/14/18 21:15 OLEG KAUFFMAN History of Present Illness: Per H&P by Dr. Kelley: CYN WARNER is a 87 year old female CYN WARNER is a 87 year old female patient with past medical history of seizure disorder, hypertension, hypothyroidism, diastolic heart failure and dementia brought from [facility] for altered mental status and tiredness. Due to her underlying cognitive impairment patient is not source of history. Brief history obtained from ER attending note and reviewing previous charts. Her blood work shows hyponatremia with sodium of 151, creatinine of 2.99 and her baseline creatinine is 0.8. Most probably patient has poor oral intake and may not have access to water. Detailed history and review of systems unobtainable. Physical Exam Vital Signs: Temp Pulse Resp BP Pulse Ox 97.7 F 65 17 100/53 L 95 02/22/18 07:11 02/22/18 07:11 02/22/18 07:11 02/22/18 07:11 02/22/18 08:00 Pulse Oximeter Continuous Start: 02/16/18 09: 19 Freq: RTQ4 Status: Active Document 02/22/18 08:00 JACQUELYN (Rec: 02/22/18 08:55 [facility] [email or web address]) Pulse Oximetry Assessment Oxygen Saturation (92-100) 95 Oxygen Delivery Method Room Air Equipment Usage Equipment in Use Continuous SpO2 Machine # 9 Intake & Output 02/21/18 02/22/18 02/23/18 06:59 06:59 06:59 Intake Total 1350 250 Balance 1350 250 Weight 62.1 kg Daily Oral fluid intake: 600ml, 118ml, 502ml, 720ml, 100ml, 50ml, 100ml , 50ml, 75ml, 120ml, 100ml General appearance: PRESENT: no acute distress, hard of hearing, well-developed , well-nourished Head exam: PRESENT: atraumatic, normocephalic Eye exam: PRESENT: conjunctival injection - Lt eye conjunctivities; improved, conjunctiva pink, EOMI, PERRLA. ABSENT: scleral icterus Mouth exam: PRESENT: dry mucosa, tongue midline Neck exam: ABSENT: carotid bruit, JVD, lymphadenopathy, thyromegaly Respiratory exam: PRESENT: clear to auscultation trupti, decreased breath sounds - Poor patient effort; can not follow commands, symmetrical, unlabored. ABSENT: rales Cardiovascular exam: PRESENT: RRR, +S1, +S2. ABSENT: diastolic murmur, rubs, systolic murmur Pulses: PRESENT: normal dorsalis pedis pul Vascular exam: PRESENT: normal capillary refill GI/Abdominal exam: PRESENT: normal bowel sounds, soft. ABSENT: distended, guarding, mass, organolmegaly, rebound, tenderness Rectal exam: PRESENT: deferred Extremities exam: PRESENT: full ROM. ABSENT: calf tenderness, clubbing, pedal edema Neurological exam: PRESENT: alert, awake, CN II-XII grossly intact, other - Socially appropriate; clear speech but not consistent with context. ABSENT: oriented to person, oriented to place, oriented to time, oriented to situation, motor sensory deficit Psychiatric exam: PRESENT: appropriate affect, normal mood. ABSENT: homicidal ideation, suicidal ideation Skin exam: PRESENT: dry, intact, warm. ABSENT: cyanosis, rash Results Laboratory Results: 02/21/18 04:30 02/20/18 17:42 Impressions: Chest X-Ray 02/19/18 00:00 IMPRESSION: PICC line placement. No significant cardiopulmonary disease. Guidance Fluoroscopy 02/19/18 00:00 IMPRESSION: SUCCESSFUL PLACEMENT OF A 5 FR DUAL LUMEN 35 CM PICC IN THE RIGHT BASILIC VEIN. Interventional Vascular Procedure 02/19/18 00:00 IMPRESSION: SUCCESSFUL PLACEMENT OF A 5 FR DUAL LUMEN 35 CM PICC IN THE RIGHT BASILIC VEIN. PICC Line Insertion 02/19/18 00:00 IMPRESSION: SUCCESSFUL PLACEMENT OF A 5 FR DUAL LUMEN 35 CM PICC IN THE RIGHT BASILIC VEIN. Transfer Plan - Disposition Transfer Plan: Discharge to home ([facility]) with Hospice services. Qualifiers - * PATIENT BEING DISCHARGED WITH ANY OF THE FOLLOWING DIAGNOSIS: No Plan Discharge Plan: Discharge to [facility] with Hospice Services. Time Spent: Less than 30 Minutes
[2018-02-22 12:13] VITALS: BP 106/54
== END 2018-02-22 14:30 | DRG 682 ==
LOC: ER 17:01 → EH 21:15 → 5 02-15 00:15
PROVIDERS: ADMIT Internal Medicine; ATTEND Internal Medicine
PROC: 02HV33Z Insertion of Infusion Device into Superior Vena Cava, Percutaneous Approach (ICD-10-PCS; principal; 2018-02-19)
PROC: B518ZZA Fluoroscopy of Superior Vena Cava, Guidance (ICD-10-PCS; 2018-02-19)
PROC: B548ZZA Ultrasonography of Superior Vena Cava, Guidance (ICD-10-PCS; 2018-02-19)
DX: N17.9 Acute kidney failure, unspecified (principal); G93.41 Metabolic encephalopathy; N39.0 Urinary tract infection, site not specified; R78.81 Bacteremia; I50.32 Chronic diastolic (congestive) heart failure; E87.0 Hyperosmolality and hypernatremia; E86.0 Dehydration; Z66 Do not resuscitate; R32 Unspecified urinary incontinence; B95.62 Methicillin resistant Staphylococcus aureus infection as the cause of diseases classified elsewhere; B96.20 Unspecified Escherichia coli [E. coli] as the cause of diseases classified elsewhere; G40.909 Epilepsy, unspecified, not intractable, without status epilepticus; I11.0 Hypertensive heart disease with heart failure; E03.9 Hypothyroidism, unspecified; E78.00 Pure hypercholesterolemia, unspecified; M19.90 Unspecified osteoarthritis, unspecified site; L30.9 Dermatitis, unspecified; G30.9 Alzheimer's disease, unspecified; F02.80 Dementia in other diseases classified elsewhere, unspecified severity, without behavioral disturbance, psychotic disturbance, mood disturbance, and anxiety; R46.0 Very low level of personal hygiene; H10.402 Unspecified chronic conjunctivitis, left eye; Z79.899 Other long term (current) drug therapy; Z88.6 Allergy status to analgesic agent; Z88.3 Allergy status to other anti-infective agents; Z88.2 Allergy status to sulfonamides; Z88.7 Allergy status to serum and vaccine; Z88.8 Allergy status to other drugs, medicaments and biological substances; Z91.018 Allergy to other foods
CPT/HCPCS: 36415; 36569; 71045; 76937; 77001; 80048; 80053; 80164; 80202; 81001; 82550; 82565; 82803; 83605; 85025; 85027; 87040; 87077; 87086; 87088; 87186; 94762; 99285; J0690; J0692; J0696; J1642; J1644; J3370; J3480; J3490; J7060; J7120